=== PATIENT | male | born 1975 | race Caucasian/White ===

== ENCOUNTER 2016-10-18 17:48 | Emergency (ER) | payer SELFPAY ==
[2016-10-18 17:56] VITALS: BP 143/90; BMI 32.5
--- NOTE | 2016-10-18 18:31 | DR.GENAD ---
HPI - PCP Primary Care Physician: NFD - HPI Comment HPI Comment: GETTING WORSE. FEVER 103F LAST NIGHT. - Complaint/Symptoms Chief Complaint Doctors Comments: COUGH, BODY ACHES AND CHEST PAIN TIMES 3 DAYS. Chief Complaint:: BREATHING PROBLEMS, COUGHING AND BODY ACHING Self Treatment fo Chief Complaint: MOTIRN - Nurses notes reviewed Nurses Notes Review: Yes - Source History Provided: Patient - Mode of Arrival Mode of Arrival: Ambulatory - Timing Onset of Chief Complaint: 10/16/16 Came on: Suddenly - Duration Duration: Constant Duration: Days - Severity Severity: Moderate PMH - PMH Past Medical History: Yes Past Medical History: Seizures Past Medical History Comment: BRAIN SURGERY, STROKE ON LEFT SIDE WHILE IN CARE HOME Past Surgical History: Yes Surgical History: Thyroidectomy Past Surgical History Comment: BRAIN SURGERY WITH METAL PLATES - Family History History of Family Medical Conditions: Yes Family Medical History: Diabetes Mellitus, Cancer - Social History Does any household member use tobacco: No Alcohol Use: None Do you use any recreational Drugs:: No (thc) Lives With: Alone Lives Where: Home - infectious screening In the last 2 months have you had wt loss of >10#?: NO Have you had fever, night sweats or hemotysis?: No Have you traveled outside the country in the last 6 months?: No Isolation: Standard ROS - Review of Systems Constitutional: Fever, Weakness, Fatigue. negative: Chills Eyes: No Symptoms Reported. negative: Eye Pain, Discharge ENTM: No Symptoms Reported. negative: Ear Pain, Nose Discharge, Nose Congestion , Throat Pain Respiratoy: Productive Cough, Short of Breath, Wheezing. negative: Hemoptysis Cardiovascular: Chest Pain. negative: Edema, Palpitations, Syncope Gastrointestinal/Abdominal: Abdominal Pain. negative: Diarrhea, Nausea, Vomiting Genitourinary: No Symptoms Reported. negative: Dysuria, Frequency, Hematuria Musculoskeletal: Muscle Pain Integumentary: No Symptoms Reported Hematologic/Lymphatic: No Symptoms Reported Endocrine: No Symptoms Reported All Other Systems: Reviewed and Negative PE - Vital Signs Vitals: Temperature 97.6 F Pulse Rate 97 Respiratory Rate 20 Blood Pressure [Left Arm] 134/72 Blood Pressure 143/90 O2 Sat by Pulse Oximetry 97 - General Limitations: No Limitations General Appearance: Alert - Head Head Exam: Normal Inspection - Eyes Eye exam: Normal Appearance - ENT ENT Exam: Normal External Ear Exam External Ear Exam: Normal External Inspection TM/Canal Exam: Bilateral Normal Nose Exam: Normal Nose Exam Mouth Exam: Normal Inspection Throat Exam: Normal Inspection - Neck Neck Exam: Normal Inspection - Chest Chest Inspection: Symmetric Chest Wall Rise - Respiratory Respiratory Exam: Respiratory Distress. negative: Chest Wall Tenderness Respiratory Exam: Bilateral Wheezing, Bilateral Rhonchi, Lower Wheezing, Lower Rhonchi - Cardiovascular Cardiovascular Exam: Regular Rate, Normal Rhythm, Normal Heart Sounds - Abdominal Exam Abdominal Exam: Normal Bowel Sounds, Soft. negative: Tenderness - Extremities Extremities Exam: Normal Inspection - Back Back Exam: Normal Inspection - Neurologic Neurological Exam: Alert, Oriented X3 - Psychiatric Psychiatric Exam: Normal Affect, Normal Mood - Skin Skin Exam: Normal Color MDM - Differential Diagnosis Differential Diagnosis: PNEUMONIA, BRONCHITIS Course - Treatment Treatment: SEE ORDERS. - Education/Counseling Education/Counseling: Patient, Education Educated On: Diagnosis, Needs for Follow Up ROR - Labs Reviewed Laboratory Results Reviewed?: Yes Result Diagrams: 10/18/16 18:57 10/18/16 18:57 Laboratory: WBC 13.8 X10^3/uL (3.6-10.0) H 10/18/16 18:57 RBC 4.17 X10^6/uL (4.7-6.0) L 10/18/16 18:57 Hgb 13.0 g/dL (13.5-18.0) L 10/18/16 18:57 Hct 37.2 % (42.0-54.0) L 10/18/16 18:57 MCV 89.3 fL (80.0-100.0) 10/18/16 18:57 MCH 31.2 pg (27.0-34.0) 10/18/16 18:57 MCHC 34.9 g/dL (33.0-35.0) 10/18/16 18:57 RDW 12.6 % (11.6-16.5) 10/18/16 18:57 Plt Count 279 X10^3/uL (150.0-450.0) 10/18/16 18:57 MPV 8.4 fL (7.4-11.0) 10/18/16 18:57 Neut % 65.5 % (42.0-75.0) 10/18/16 18:57 Lymph % 19.0 % (21.0-51.0) L 10/18/16 18:57 [place] % 10.0 % (0.0-13.0) 10/18/16 18:57 Eos % 4.8 % (0.9-2.9) H 10/18/16 18:57 Baso % 0.7 % (0.2-1.0) 10/18/16 18:57 Neut # 9.0 x10^3/uL (2.2-4.8) H 10/18/16 18:57 Lymph # 2.6 X10^3/uL (1.3-2.9) 10/18/16 18:57 [place] # 1.4 x10^3/uL (0.3-0.8) H 10/18/16 18:57 Eos # 0.7 x10^3/uL (0.0-0.2) H 10/18/16 18:57 Baso # 0.1 X10^3/uL (0.0-0.1) 10/18/16 18:57 Absolute Nucleated RBC 0.0 /100WBC 10/18/16 18:57 Sodium 138 mmol/L (136-145) 10/18/16 18:57 Corrected Sodium TNP 10/18/16 18:57 Potassium 3.6 mmol/L (3.5-5.1) 10/18/16 18:57 Chloride 102 mmol/L (98-107) 10/18/16 18:57 Carbon Dioxide 26.5 mmol/L (21-32) 10/18/16 18:57 BUN 10 mg/dL (7-18) 10/18/16 18:57 Creatinine 0.99 mg/dL (0.70-1.30) 10/18/16 18:57 Est GFR (MDRD) Af Amer > 60 (>60) 10/18/16 18:57 Est GFR (MDRD) Non-Af > 60 (>60) 10/18/16 18:57 Glucose 92 mg/dL (65-99) 10/18/16 18:57 Calcium 9.1 mg/dL (8.5-10.1) 10/18/16 18:57 Corrected Calcium 9.7 mg/dL (8.5-10.1) 10/18/16 18:57 Total Bilirubin 0.50 mg/dL (0.2-1.0) 10/18/16 18:57 AST 38 Units/L (15-37) H 10/18/16 18:57 ALT 78 Units/L (12-78) 10/18/16 18:57 Alkaline Phosphatase 93 Units/L (46-116) 10/18/16 18:57 Total Protein 8.1 g/dL (6.4-8.2) 10/18/16 18:57 Albumin 3.3 g/dL (3.4-5.0) L 10/18/16 18:57 Globulin 4.8 g/dL (2.5-4.5) H 10/18/16 18:57 Albumin/Globulin Ratio 0.7 Ratio (1.1-2.1) L 10/18/16 18:57 - XRAY XRAY Interpreted by: Radiologist XRAY Findings: REPORT DISCUSS WITH PATIENT. - Diagnosis Discharge Problem: Bronchitis - Discharge Plan Disposition: 01 HOME, SELF-CARE Condition: Stable Prescriptions: Azithromycin [Zithromax Z-Michael 5-day] 1 dose PO DAILY #6 tab Benzonatate [TESSALON PERLES *] 200 mg PO TID PRN #20 cap PRN Reason: Cough Ibuprofen [Motrin Tab 800 mg] 800 mg PO Q8H PRN #20 tab PRN Reason: Pain/Inflammation - Follow ups/Referrals Follow ups/Referrals: NFD,None [Primary Care Provider] - 3 days - Instructions Instructions: Acute Bronchitis, [id number] Additional Instructions: RETURN TO ED IF WORSE.
[2016-10-18] MEDS ORDERED: TUSSIONEX PENNKINETIC SUSP PO ONE (18:47)
[2016-10-18 19:03] LABS: BASOPHILS # (AUTO) 0.1 X10^3/uL (0.0-0.1); BASOPHILS % (AUTO) 0.7 % (0.2-1.0); EOSINOPHILS # (AUTO) 0.7 x10^3/uL (0.0-0.2); EOSINOPHILS % (AUTO) 4.8 % (0.9-2.9); HEMATOCRIT 37.2 % (42.0-54.0); LYMPHOCYTES # (AUTO) 2.6 X10^3/uL (1.3-2.9); MEAN CORPUSCULAR HEMOGLOBIN 31.2 pg (27.0-34.0); MEAN CORPUSCULAR HGB CONC 34.9 g/dL (33.0-35.0); MEAN CORPUSCULAR VOLUME 89.3 fL (80.0-100.0); MEAN PLATELET VOLUME 8.4 fL (7.4-11.0); MONOCYTES # (AUTO) 1.4 x10^3/uL (0.3-0.8); NEUTROPHILS % (AUTO) 65.5 % (42.0-75.0); PLATELET COUNT 279 X10^3/uL (150.0-450.0); RED BLOOD COUNT 4.17 X10^6/uL (4.7-6.0); RED CELL DISTRIBUTION WIDTH 12.6 % (11.6-16.5); WHITE BLOOD COUNT 13.8 X10^3/uL (3.6-10.0)
[2016-10-18 19:24] LABS: ALANINE AMINOTRANSFERASE 78 Units/L (12-78); ALBUMIN 3.3 g/dL (3.4-5.0); ALKALINE PHOSPHATASE 93 Units/L (46-116); ASPARTATE AMINO TRANSFERASE 38 Units/L (15-37); BLOOD UREA NITROGEN 10 mg/dL (7-18); CALCIUM 9.1 mg/dL (8.5-10.1); CARBON DIOXIDE 26.5 mmol/L (21-32); CHLORIDE 102 mmol/L (98-107); COR CA(FOR HYPOALB) 9.7 mg/dL (8.5-10.1); CREATININE 0.99 mg/dL (0.70-1.30); GLUCOSE 92 mg/dL (65-99); SODIUM 138 mmol/L (136-145); TOTAL PROTEIN 8.1 g/dL (6.4-8.2); eGFR BLACK RACES > 60 (>60); eGFR NON BLACK RACES > 60 (>60)
--- NOTE | 2016-10-18 19:44 | RAD ---
HISTORY: Cough, fever Study: Two view chest Comparison: None Findings: Lung volumes are reduced. The lungs are clear without consolidation, effusion or pneumothorax. The c ardiac and mediastinal contours are within normal limits. The soft tissues are unremarkable. IMPRESSION: 1. No acute cardiopulmonary abnormality. Reported By:
[2016-10-18] MEDS ORDERED: ZITHROMAX TAB 250 MG PO ONE ×2 (19:47→19:49)
[2016-10-18] MEDS ORDERED: TUSSIONEX PENNKINETIC SUSP ONE (19:50)
== END 2016-10-18 19:54 | disposition home or self-care (01) ==
LOC: ER 18:04
DX: J40 Bronchitis, not specified as acute or chronic (principal)
CPT/HCPCS: 36415; 71020; 80053; 85025; 99283; Q0144

== ENCOUNTER 2017-02-09 13:20 | Emergency (ER) | payer SELFPAY ==
[2017-02-09 13:55] VITALS: BP 151/94; BMI 32.5
[2017-02-09] MEDS ORDERED: DEMEROL INJ IM ONE (16:44)
[2017-02-09] MEDS ORDERED: ZOFRAN INJ 4 MG VIAL IM ONE (16:44)
[2017-02-09] MEDS ORDERED: DEMEROL INJ ONE (17:04)
[2017-02-09] MEDS ORDERED: ZOFRAN INJ 4 MG VIAL ONE (17:04)
--- NOTE | 2017-02-09 17:15 | CT ---
CT head without contrast Indication: Headache, prior frontal calvarial surgery related to trauma in 2007 Technique: Helical CT images of the brain were obtained without IV contrast. Reformatted images in th e coronal and sagittal planes were also generated for review. Comparison: None Findings: Prior postsurgical changes within the frontal calvarium are noted with associated fixation plate and screw construct. There is a persistent defect involving the inner table of the frontal sinu ses with mild bulging of the bilateral anterior frontal lobes into the defect. There is associated hy poattenuation of the left greater than right frontal lobes at the calvarial defect, either reflecting edema or encephalomalacia. The remaining brain is otherwise normal in appearance. No intracranial he morrhage, visible acute infarct, extra-axial collection, hydrocephalus, mass or midline shift is iden tified. Chronic appearing fractures of the bilateral nasal bones are noted. There is mild mucosal thickening of the bilateral ethmoid air cells and right greater than left maxillary sinuses. There are inspissat ed secretions within the posterior right maxillary sinus. Partial opacification bilateral mastoid air cells is also noted. No acute osseous or soft tissue abnormality is seen. Impression: 1. Prior postsurgical changes of the frontal calvarium with persistent defect involving the inner tab le of the frontal sinuses. There is bulging of the bilateral frontal lobes through the defect with as sociated edema versus encephalomalacia of the left greater than right frontal lobes, as detailed abov e. If available, comparison with prior imaging is recommended to evaluate for stability. 2. Otherwise, no acute intracranial process. 3. Paranasal sinus mucosal disease and additional findings, as above. Reported By:
[2017-02-09 17:20] LABS: ALBUMIN 3.4 g/dL (3.4-5.0); ALKALINE PHOSPHATASE 106 Units/L (46-116); BLOOD UREA NITROGEN 9 mg/dL (7-18); CALCIUM 8.7 mg/dL (8.5-10.1); CARBON DIOXIDE 26.2 mmol/L (21-32); CHLORIDE 105 mmol/L (98-107); COR NA(FOR HYPERGLY) 140 mmol/L (136-145); CREATININE 0.94 mg/dL (0.70-1.30); SODIUM 139 mmol/L (136-145); eGFR BLACK RACES > 60 (>60); eGFR NON BLACK RACES > 60 (>60)
[2017-02-09 17:46] LABS: BASOPHILS # (AUTO) 0.1 X10^3/uL (0.0-0.1); BASOPHILS % (AUTO) 0.7 % (0.2-1.0); EOSINOPHILS # (AUTO) 0.3 x10^3/uL (0.0-0.2); EOSINOPHILS % (AUTO) 4.1 % (0.9-2.9); HEMATOCRIT 41.5 % (42.0-54.0); HEMOGLOBIN 14.9 g/dL (13.5-18.0); LYMPHOCYTES # (AUTO) 2.4 X10^3/uL (1.3-2.9); LYMPHOCYTES % (AUTO) 32.1 % (21.0-51.0); MEAN CORPUSCULAR HEMOGLOBIN 33.1 pg (27.0-34.0); MEAN CORPUSCULAR HGB CONC 35.8 g/dL (33.0-35.0); MEAN CORPUSCULAR VOLUME 92.2 fL (80.0-100.0); MEAN PLATELET VOLUME 10.2 fL (7.4-11.0); MONOCYTES # (AUTO) 0.5 x10^3/uL (0.3-0.8); MONOCYTES % (AUTO) 6.6 % (0.0-13.0); NEUTROPHILS # (AUTO) 4.2 x10^3/uL (2.2-4.8); NEUTROPHILS % (AUTO) 56.5 % (42.0-75.0); PLATELET COUNT 183 X10^3/uL (150.0-450.0); RED CELL DISTRIBUTION WIDTH 13.1 % (11.6-16.5); WHITE BLOOD COUNT 7.5 X10^3/uL (3.6-10.0)
[2017-02-09 18:04] LABS: BAND NEUTROPHILS % 6 % (0-10)
[2017-02-09 18:05] LABS: PLATELET MORPHOLOGY COMMENT NORMAL (NORMAL)
[2017-02-09 18:06] LABS: ASPARTATE AMINO TRANSFERASE 78 Units/L (15-37)
[2017-02-09 18:07] LABS: ALANINE AMINOTRANSFERASE 126 Units/L (12-78)
--- NOTE | 2017-02-09 18:13 | DR.GENAD ---
HPI - PCP Primary Care Physician: NFD - HPI Comment HPI Comment: HISTORY BELOW. - Complaint/Symptoms Chief Complaint Doctors Comments: HEADACHE, EAR ACHE AND DRAINAGE AND SINUS CONGESTION AND DRAINAGE FOR SEVERAL DAYS. NO FEVER. HEADACHE GETTING WORSE. POST SURGERY BRAIN WITH INDWELLING PLATES DUE TO TRAUMA. NO NEW INJURY. DRAINAGE ALSO GETTING WORSE. Chief Complaint:: "About 4 days ago I have been having a bad headache and have been having vision problems. I have also been very dizzy. I have been having stuff coming out of my nose and my eye as well, some kind of drainage. I had surgury on my brain in 2007. I have a plate in my head and the doctor told me that I need to go to the ER to see if the plate has shifted. - Nurses notes reviewed Nurses Notes Review: Yes - Source History Provided: Patient - Mode of Arrival Mode of Arrival: Ambulatory - Timing Onset of Chief Complaint: 02/06/17 - Duration Duration: Constant Duration: Days PMH - PMH Past Medical History: Yes Past Medical History: Dyslipidemia, Seizures Past Medical History Comment: Previous stroke Past Surgical History: Yes Surgical History: Tonsillectomy, Other Past Surgical History Comment: Plate put in head. - Family History History of Family Medical Conditions: Yes Family Medical History: Diabetes Mellitus, Cancer - Social History Does patient currently use any type of tobacco product: Yes Have you used tobacco products in the last 12 months: Yes Type of Tobacco Use: Cigarettes Does any household member use tobacco: No Alcohol Use: None Do you use any recreational Drugs:: No Lives With: Family Lives Where: Home - infectious screening In the last 2 months have you had wt loss of >10#?: NO Have you had fever, night sweats or hemotysis?: No Have you traveled outside the country in the last 6 months?: No Isolation: Standard ROS - Review of Systems Constitutional: negative: Chills, Fever Eyes: Discharge. negative: Eye Pain ENTM: No Symptoms Reported, Ear Pain, Ear Discharge (BILATERAL), Nose Discharge , Nose Congestion. negative: Throat Pain Respiratoy: Non-Productive Cough. negative: Short of Breath, Wheezing, Hemoptysis Cardiovascular: No Symptoms Reported. negative: Chest Pain, Edema Gastrointestinal/Abdominal: No Symptoms Reported. negative: Diarrhea, Nausea, Vomiting Genitourinary: No Symptoms Reported. negative: Dysuria, Frequency, Hematuria Neurological: Headache, Weakness, Dizziness Musculoskeletal: Muscle Pain Integumentary: Change in Color, Other (EAR LOBE SWELLING AND REDNESS) Hematologic/Lymphatic: No Symptoms Reported Endocrine: No Symptoms Reported All Other Systems: Reviewed and Negative PE - Vital Signs Vitals: Temperature 97.8 F Pulse Rate 95 Respiratory Rate 18 Blood Pressure [Left Arm] 134/72 Blood Pressure 151/94 O2 Sat by Pulse Oximetry 96 - General Limitations: No Limitations General Appearance: Alert - Head Head Exam: Normal Inspection - Eyes Eye exam: Normal Appearance, PERRL, EOMI. negative: Scleral Icterus, Conjunctival Injection - ENT ENT Exam: Normal Oropharynx, Normal External Ear Exam External Ear Exam: Normal External Inspection TM/Canal Exam: Bilateral Erythema, Bilateral Canal Tenderness Nose Exam: Normal Nose Exam Mouth Exam: Normal Inspection Throat Exam: Normal Inspection - Neck Neck Exam: Trachea Midline, Lymphadenopathy. negative: Tenderness, Meningismus - Chest Chest Inspection: Symmetric Chest Wall Rise - Respiratory Respiratory Exam: Normal Lung Sounds Bilat Respiratory Exam: Bilateral Clear to Auscultation - Cardiovascular Cardiovascular Exam: Regular Rate, Normal Rhythm, Normal Heart Sounds - Abdominal Exam Abdominal Exam: Normal Bowel Sounds, Soft. negative: Tenderness - Extremities Extremities Exam: Normal Inspection - Back Back Exam: Normal Inspection - Neurologic Neurological Exam: Alert, Oriented X3, CN II-XII Intact, Normal Gait, Reflexes Normal. negative: Motor Sensory Deficit - Psychiatric Psychiatric Exam: Normal Affect, Normal Mood - Skin Skin Exam: Normal Color MDM - Additional Information Additional Information Obtained From: Family - Differential Diagnosis Differential Diagnosis: otitis media, otitis external, sinusitis, sinus headache , ear drainage Course - Treatment Treatment: SEE ORDERS. IM MEDS IN ED. - Education/Counseling Education/Counseling: Patient, Family, Education Educated On: Treatment, Diagnosis, Needs for Follow Up ROR - Labs Reviewed Laboratory Results Reviewed?: Yes Result Diagrams: 02/09/17 16:59 02/09/17 16:59 Laboratory: WBC 7.5 X10^3/uL (3.6-10.0) 02/09/17 16:59 RBC 4.50 X10^6/uL (4.7-6.0) L 02/09/17 16:59 Hgb 14.9 g/dL (13.5-18.0) 02/09/17 16:59 Hct 41.5 % (42.0-54.0) L 02/09/17 16:59 MCV 92.2 fL (80.0-100.0) 02/09/17 16:59 MCH 33.1 pg (27.0-34.0) 02/09/17 16:59 MCHC 35.8 g/dL (33.0-35.0) H 02/09/17 16:59 RDW 13.1 % (11.6-16.5) 02/09/17 16:59 Plt Count 183 X10^3/uL (150.0-450.0) 02/09/17 16:59 Plt Count Comment Adequate (ADEQUATE) 02/09/17 16:59 MPV 10.2 fL (7.4-11.0) 02/09/17 16:59 Neut % 56.5 % (42.0-75.0) 02/09/17 16:59 Lymph % 32.1 % (21.0-51.0) 02/09/17 16:59 [place] % 6.6 % (0.0-13.0) 02/09/17 16:59 Eos % 4.1 % (0.9-2.9) H 02/09/17 16:59 Baso % 0.7 % (0.2-1.0) 02/09/17 16:59 Neut # 4.2 x10^3/uL (2.2-4.8) 02/09/17 16:59 Lymph # 2.4 X10^3/uL (1.3-2.9) 02/09/17 16:59 [place] # 0.5 x10^3/uL (0.3-0.8) 02/09/17 16:59 Eos # 0.3 x10^3/uL (0.0-0.2) H 02/09/17 16:59 Baso # 0.1 X10^3/uL (0.0-0.1) 02/09/17 16:59 Absolute Nucleated RBC 0.6 /100WBC 02/09/17 16:59 Total Counted 100 02/09/17 16:59 Neutrophils % (Manual) 54 % (39-76) 02/09/17 16:59 Band Neutrophils % 6 % (0-10) 02/09/17 16:59 Lymphocytes % (Manual) 30 % (13-43) 02/09/17 16:59 Monocytes % (Manual) 4 % (4-9) 02/09/17 16:59 Eosinophils % (Manual) 6 % (0-6) 02/09/17 16:59 Plt Morphology Comment Normal (NORMAL) 02/09/17 16:59 RBC Morphology Normal (NORMAL) 02/09/17 16:59 Sodium 139 mmol/L (136-145) 02/09/17 16:59 Corrected Sodium 140 mmol/L (136-145) 02/09/17 16:59 Potassium 3.6 mmol/L (3.5-5.1) 02/09/17 16:59 Chloride 105 mmol/L (98-107) 02/09/17 16:59 Carbon Dioxide 26.2 mmol/L (21-32) 02/09/17 16:59 BUN 9 mg/dL (7-18) 02/09/17 16:59 Creatinine 0.94 mg/dL (0.70-1.30) 02/09/17 16:59 Est GFR (MDRD) Af Amer > 60 (>60) 02/09/17 16:59 Est GFR (MDRD) Non-Af > 60 (>60) 02/09/17 16:59 Glucose 138 mg/dL (65-99) H 02/09/17 16:59 Calcium 8.7 mg/dL (8.5-10.1) 02/09/17 16:59 Corrected Calcium TNP 02/09/17 16:59 Total Bilirubin 0.60 mg/dL (0.2-1.0) 02/09/17 16:59 AST 78 Units/L (15-37) H 02/09/17 16:59 ALT 126 Units/L (12-78) H 02/09/17 16:59 Alkaline Phosphatase 106 Units/L (46-116) 02/09/17 16:59 Total Protein 7.0 g/dL (6.4-8.2) 02/09/17 16:59 Albumin 3.4 g/dL (3.4-5.0) 02/09/17 16:59 Globulin 3.6 g/dL (2.5-4.5) 02/09/17 16:59 Albumin/Globulin Ratio 0.9 Ratio (1.1-2.1) L 02/09/17 16:59 - XRAY XRAY Interpreted by: Radiologist XRAY Findings: REPORT DISCUSS WITH PATIENT AND FAMILY. - Diagnosis Discharge Problem: Sinus headache Otitis media Qualifiers: Otitis media type: suppurative Chronicity: acute Laterality: bilateral Recurrence: recurrent Spontaneous tympanic membrane rupture: without spontaneous rupture Qualified Code(s): H66.006 - Acute suppurative otitis media without spontaneous rupture of ear drum, recurrent, bilateral Otitis external Qualifiers: Otitis externa type: diffuse Chronicity: acute Laterality: bilateral Qualified Code(s): H60.313 - Diffuse otitis externa, bilateral Sinusitis Qualifiers: Sinusitis location: pansinusitis Chronicity: chronic Qualified Code(s): J32.4 - Chronic pansinusitis Ear drainage Qualifiers: Laterality: bilateral Qualified Code(s): H92.13 - Otorrhea, bilateral - Discharge Plan Disposition: HOME, SELF-CARE Condition: Stable Prescriptions: Nhvbckisza-Iwsn-Nhlublex [Fioricet Tab] 1 tab PO Q8H PRN #30 tab PRN Reason: Migraine Headache Cetirizine HCl [Zyrtec Tab 10 mg] 10 mg PO DAILY #30 tab Ciprofloxacin HCl [CIPRO 500 MG TAB *] 500 mg PO Q12H #20 tab Ibuprofen [MOTRIN TAB 800 MG *] 800 mg PO Q8H PRN #90 tab PRN Reason: Pain/Inflammation Sulfamethoxazole-Trimethoprim [BACTRIM DS TAB 800/160 MG *] 1 tab PO Q8H #30 tab Tramadol HCl 50 mg PO Q8H #15 tablet - Follow ups/Referrals Follow ups/Referrals: NFD,None [Primary Care Provider] - 3 days - Instructions Instructions: Ear Drainage, [id number], Otitis Media, Adult, [id number]-[id number], Sinusitis, Adult, [id number], Sinus Headache Additional Instructions: RETURN TO ED IF WORSE.
[2017-02-09] MEDS ORDERED: ROCEPHIN VIAL 1 GM IM ONE (18:39)
[2017-02-09] MEDS ORDERED: TORADOL 60 MG VIAL IM ONE (18:39)
[2017-02-09] MEDS ORDERED: ROCEPHIN VIAL 1 GM ONE (18:51)
[2017-02-09] MEDS ORDERED: TORADOL 60 MG VIAL ONE ×2 (18:52)
[2017-02-09] MEDS ORDERED: XYLOCAINE 1 % (PLAIN) ONE (18:52)
== END 2017-02-09 19:00 | disposition home or self-care (01) ==
LOC: ER 14:01
DX: R51 Headache (principal); H66.006 Acute suppurative otitis media without spontaneous rupture of ear drum, recurrent, bilateral; H60.313 Diffuse otitis externa, bilateral; J32.4 Chronic pansinusitis; H92.13 Otorrhea, bilateral
CPT/HCPCS: 36415; 70450; 80053; 85025; 96372; 99283; J0696; J1885; J2001; J2175; J2405

== ENCOUNTER 2017-07-25 16:10 | Emergency (ER) | payer SELFPAY ==
[2017-07-25 16:21] VITALS: BP 127/79; BMI 35.4
--- NOTE | 2017-07-25 17:02 | DR.CONMALE ---
HPI - Time Seen Time seen: 16:50 - Complaint Chief Complaint Doctors Comments: Patient presents with complaint of constipation three weeks. He reports that he has Hepatitis C is taking Lactulose 45cc tid. He was diagnosed with liver disease in 2013. - Timing Onset of Chief Complaint: 05/22/17 PMH - PMH Past Medical History: Yes Past Medical History: Anxiety, Dyslipidemia, Schizophrenia, Seizures Past Surgical History: Yes Surgical History: Tonsillectomy, Other - Family History History of Family Medical Conditions: Yes Family Medical History: Cancer, Hypertension - Social History Does patient currently use any type of tobacco product: Yes Have you used tobacco products in the last 12 months: Yes Type of Tobacco Use: Cigarettes Does any household member use tobacco: Yes Alcohol Use: None Do you use any recreational Drugs:: No Lives With: Spouse, Family Lives Where: Home - infectious screening In the last 2 months have you had wt loss of >10#?: YES Have you had fever, night sweats or hemotysis?: No Have you traveled outside the country in the last 6 months?: No Isolation: Standard ROS - Review of Systems Eyes: No Symptoms Reported ENTM: No Symptoms Reported Respiratoy: No Symptoms Reported Cardiovascular: No Symptoms Reported Gastrointestinal/Abdominal: No Symptoms Reported Genitourinary: No Symptoms Reported Neurological: No Symptoms Reported Musculoskeletal: No Symptoms Reported Integumentary: No Symptoms Reported Hematologic/Lymphatic: Other (liver) Endocrine: No Symptoms Reported Psychiatric: No Symptoms Reported All Other Systems: Reviewed and Negative PE - Vital Signs Vital Signs: Temp Pulse Resp BP BP Pulse Ox 07/25/17 16:11 98.7 F 84 22 127/79 98 02/09/17 13:49 151/94 10/14/12 06:00 134/72 - General Limitations: No Limitations General Appearance: Alert, In No Apparent Distress - Head Head Exam: Normal Inspection, Atraumatic - Eyes Eye exam: Normal Appearance, PERRL, EOMI - ENT ENT Exam: Normal Exam - Neck Neck Exam: Normal Inspection, Full ROM - Chest Chest Inspection: Normal Inspection - Respiratory Respiratory Exam: Normal Lung Sounds Bilat Respiratory Exam: Bilateral Clear to Auscultation - Cardiovascular Cardiovascular Exam: Regular Rate - Gastrointestinal Abdominal Exam: Normal Inspection Abdominal Tenderness: Diffuse, Other (distended) - Rectal Rectal: Normal Exam, Normal Rectal Tone. negative: Black Stool, Hemorrhoids, Tenderness - Extremities Extremities Exam: Normal Inspection - Back Back Exam: Normal Inspection - Neurological Neurological Exam: Alert, Oriented X3, CN II-XII Intact - Psychiatric Psychiatric Exam: Normal Affect - Skin Skin Exam: Warm, Dry, Intact Course - Education/Counseling Educated On: Treatment, Diagnosis, Prognosis, Needs for Follow Up ROR - Labs Reviewed Result Diagrams: 07/25/17 17:10 07/25/17 17:10 Laboratory: WBC 9.1 X10^3/uL (3.6-10.0) 07/25/17 17:10 RBC 4.74 X10^6/uL (4.7-6.0) 07/25/17 17:10 Hgb 15.1 g/dL (13.5-18.0) 07/25/17 17:10 Hct 43.0 % (42.0-54.0) 07/25/17 17:10 MCV 90.7 fL (80.0-100.0) 07/25/17 17:10 MCH 31.9 pg (27.0-34.0) 07/25/17 17:10 MCHC 35.2 g/dL (33.0-35.0) H 07/25/17 17:10 RDW 12.6 % (11.6-16.5) 07/25/17 17:10 Plt Count 226 X10^3/uL (150.0-450.0) 07/25/17 17:10 MPV 9.5 fL (7.4-11.0) 07/25/17 17:10 Neut % 54.2 % (42.0-75.0) 07/25/17 17:10 Lymph % 35.4 % (21.0-51.0) 07/25/17 17:10 [place] % 5.9 % (0.0-13.0) 07/25/17 17:10 Eos % 3.6 % (0.9-2.9) H 07/25/17 17:10 Baso % 0.9 % (0.2-1.0) 07/25/17 17:10 Neut # 4.9 x10^3/uL (2.2-4.8) H 07/25/17 17:10 Lymph # 3.2 X10^3/uL (1.3-2.9) H 07/25/17 17:10 [place] # 0.5 x10^3/uL (0.3-0.8) 07/25/17 17:10 Eos # 0.3 x10^3/uL (0.0-0.2) H 07/25/17 17:10 Baso # 0.1 X10^3/uL (0.0-0.1) 07/25/17 17:10 Absolute Nucleated RBC 0.0 /100WBC 07/25/17 17:10 Sodium 138 mmol/L (136-145) 07/25/17 17:10 Corrected Sodium TNP 07/25/17 17:10 Potassium 4.3 mmol/L (3.5-5.1) 07/25/17 17:10 Chloride 101 mmol/L (98-107) 07/25/17 17:10 Carbon Dioxide 28.6 mmol/L (21-32) 07/25/17 17:10 BUN 18 mg/dL (7-18) 07/25/17 17:10 Creatinine 1.18 mg/dL (0.70-1.30) 07/25/17 17:10 Est GFR (MDRD) Af Amer > 60 (>60) 07/25/17 17:10 Est GFR (MDRD) Non-Af > 60 (>60) 07/25/17 17:10 Glucose 91 mg/dL (65-99) 07/25/17 17:10 Calcium 9.1 mg/dL (8.5-10.1) 07/25/17 17:10 Corrected Calcium TNP 07/25/17 17:10 Total Bilirubin 0.40 mg/dL (0.2-1.0) 07/25/17 17:10 AST 48 Units/L (15-37) H 07/25/17 17:10 ALT 88 Units/L (12-78) H 07/25/17 17:10 Alkaline Phosphatase 99 Units/L (46-116) 07/25/17 17:10 Ammonia 19 umol/L (11-32) 07/25/17 17:10 Total Protein 7.8 g/dL (6.4-8.2) 07/25/17 17:10 Albumin 3.7 g/dL (3.4-5.0) 07/25/17 17:10 Globulin 4.1 g/dL (2.5-4.5) 07/25/17 17:10 Albumin/Globulin Ratio 0.9 Ratio (1.1-2.1) L 07/25/17 17:10 Stool Description Fob tube 07/25/17 17:02 Stl Occult Blood (IFOB) Negative (NEGATIVE) 07/25/17 17:02 - XRAY XRAY Interpreted by: Radiologist (KUB: Evaluatioon of the abdomen demonstrates a nonspecific/nonobstructive bowel gas pattern with air and stool to the level of the rectum. No obvious free air. No pathological soft tissue mass or calcification can be observed. The bony structures are grossly intact. Impression: Nonobstructive bowel-gas pattern.) Procedures - Procedures Informed Consent Obtained: Yes (Ammonia level 19) - Diagnosis Discharge Problem: Constipation Qualifiers: Constipation type: slow transit constipation Qualified Code(s): K59.01 - Slow transit constipation - Discharge Plan Condition: Stable - Follow ups/Referrals Follow ups/Referrals: ROSELINE BAILEY [Primary Care Provider] - 3 days - Instructions
[2017-07-25 17:21] LABS: BASOPHILS # (AUTO) 0.1 X10^3/uL (0.0-0.1); BASOPHILS % (AUTO) 0.9 % (0.2-1.0); EOSINOPHILS # (AUTO) 0.3 x10^3/uL (0.0-0.2); EOSINOPHILS % (AUTO) 3.6 % (0.9-2.9); HEMOGLOBIN 15.1 g/dL (13.5-18.0); LYMPHOCYTES # (AUTO) 3.2 X10^3/uL (1.3-2.9); LYMPHOCYTES % (AUTO) 35.4 % (21.0-51.0); MEAN CORPUSCULAR HEMOGLOBIN 31.9 pg (27.0-34.0); MEAN CORPUSCULAR HGB CONC 35.2 g/dL (33.0-35.0); MEAN CORPUSCULAR VOLUME 90.7 fL (80.0-100.0); MEAN PLATELET VOLUME 9.5 fL (7.4-11.0); MONOCYTES # (AUTO) 0.5 x10^3/uL (0.3-0.8); MONOCYTES % (AUTO) 5.9 % (0.0-13.0); NEUTROPHILS # (AUTO) 4.9 x10^3/uL (2.2-4.8); NEUTROPHILS % (AUTO) 54.2 % (42.0-75.0); PLATELET COUNT 226 X10^3/uL (150.0-450.0); RED BLOOD COUNT 4.74 X10^6/uL (4.7-6.0); RED CELL DISTRIBUTION WIDTH 12.6 % (11.6-16.5); WHITE BLOOD COUNT 9.1 X10^3/uL (3.6-10.0)
[2017-07-25 17:27] LABS: AMMONIA 19 umol/L (11-32)
[2017-07-25 17:30] LABS: ALANINE AMINOTRANSFERASE 88 Units/L (12-78); ALBUMIN 3.7 g/dL (3.4-5.0); ALKALINE PHOSPHATASE 99 Units/L (46-116); ASPARTATE AMINO TRANSFERASE 48 Units/L (15-37); BLOOD UREA NITROGEN 18 mg/dL (7-18); CALCIUM 9.1 mg/dL (8.5-10.1); CARBON DIOXIDE 28.6 mmol/L (21-32); CHLORIDE 101 mmol/L (98-107); CREATININE 1.18 mg/dL (0.70-1.30); SODIUM 138 mmol/L (136-145); TOTAL PROTEIN 7.8 g/dL (6.4-8.2); eGFR BLACK RACES > 60 (>60); eGFR NON BLACK RACES > 60 (>60)
--- NOTE | 2017-07-25 17:51 | RAD ---
HISTORY: Constipation and right-sided abdominal pain. Study: 2 AP views of the abdomen. Comparison: None. Findings: Evaluation of the abdomen demonstrates a nonspecific/nonobstructive bowel-gas pattern with air and st ool to the level of the rectum. No obvious free air. No pathological soft tissue mass or calcificati on can be observed. The bony structures are grossly intact. IMPRESSION: Nonobstructive bowel-gas pattern. Reported By:
[2017-07-25] MEDS ORDERED: CITROMA PO ONE (18:14)
[2017-07-25] MEDS ORDERED: CITROMA ONE (18:17)
== END 2017-07-25 18:18 | disposition home or self-care (01) ==
LOC: ER 16:35
DX: K59.01 Slow transit constipation (principal)
CPT/HCPCS: 36415; 74018; 80053; 82140; 82274; 85025; 99282

== ENCOUNTER 2017-08-18 11:30 | Emergency (ER) | payer SELFPAY ==
[2017-08-18] MEDS ORDERED: DILAUDID INJ IVP STA ×2 (11:41→12:37)
[2017-08-18] MEDS ORDERED: DILAUDID INJ ONE (11:42)
[2017-08-18 11:46] VITALS: BP 152/92; BMI 35.7
--- NOTE | 2017-08-18 11:56 | DR.GENAD ---
HPI - Complaint/Symptoms Chief Complaint Doctors Comments: Patient presented to the ED via EMS with complaint of hurting his back he heard a "pop" when trying to lift a refrigerator. He states that he also complaint of neck pain PMH - PMH Past Medical History: Anxiety, Dyslipidemia, Schizophrenia, Seizures Past Surgical History: Yes Surgical History: Tonsillectomy, Other - Family History Family Medical History: Cancer, Hypertension - Social History Do you use any recreational Drugs:: No ROS - Review of Systems Eyes: No Symptoms Reported ENTM: No Symptoms Reported Respiratoy: No Symptoms Reported Cardiovascular: No Symptoms Reported Gastrointestinal/Abdominal: No Symptoms Reported Genitourinary: No Symptoms Reported Neurological: No Symptoms Reported Musculoskeletal: Back Pain, Neck Integumentary: No Symptoms Reported Hematologic/Lymphatic: No Symptoms Reported Endocrine: No Symptoms Reported Psychiatric: No Symptoms Reported All Other Systems: Reviewed and Negative PE - Vital Signs Vitals: Temperature 98.1 F Pulse Rate 99 Respiratory Rate 18 Blood Pressure [Left Arm] 134/72 Blood Pressure 152/92 O2 Sat by Pulse Oximetry 98 - General Limitations: No Limitations General Appearance: Alert, In No Apparent Distress - Head Head Exam: Normal Inspection, Atraumatic - Eyes Eye exam: Normal Appearance, PERRL, EOMI - ENT ENT Exam: Normal Exam External Ear Exam: Normal External Inspection TM/Canal Exam: Bilateral Normal Nose Exam: Normal Nose Exam Mouth Exam: Normal Inspection Throat Exam: Normal Inspection - Neck Neck Exam: Normal Inspection, Full ROM, Other (c/o neck paiin) - Chest Chest Inspection: Normal Inspection - Respiratory Respiratory Exam: Normal Lung Sounds Bilat Respiratory Exam: Bilateral Clear to Auscultation - Cardiovascular Cardiovascular Exam: Regular Rate, Normal Rhythm - Abdominal Exam Abdominal Exam: Normal Inspection Abdominal Tenderness: negative: RUQ, RLQ, LUQ, LLQ, Epigastrium, Suprapubic, Diffuse, Mild, Moderate, Severe, Other - Extremities Extremities Exam: Normal Inspection, Full ROM - Back Back Exam: Normal Inspection, Muscle Spasm, Paraspinal Tenderness - Neurologic Neurological Exam: Alert, Oriented X3, CN II-XII Intact - Psychiatric Psychiatric Exam: Normal Affect - Skin Skin Exam: Warm, Dry, Intact ROR - XRAY XRAY Interpreted by: Radiologist (CT Cervical Spine: No evidence for fracture or dislocation. Degenerative disc disease C5-6 and C6-7. CT Lumbar spine: Mild multilevel degenerative disease without significant central canal or neural foraminal stenosis. No acute fracture or malalignment. 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
--- NOTE | 2017-08-18 12:25 | CT ---
HISTORY: Injury, fall, neck pain Study: CT cervical spine without contrast Comparison: None Technique: Axial noncontrast images with coronal and sagittal reformats. Dose reduction procedures we re used with mA/kv adjusted for body size. Findings: There is reversal of the normal lordotic curve which could be positional or due to muscle spasm. The alignment is otherwise normal. The prevertebral soft tissues are normal. The vertebral bodies are of average height. Degenerative disc disease is present at C5-6 and C6-7.. The pedicles, spinous process es, and posterior elements are intact. The neural foramina are patent with the exception of spondylit ic foraminal narrowing at C5-6 bilaterally. The facet joints are within normal limits. Diffuse bilate ral uncovertebral joint degenerative joint disease is present most prominent at C5-6. IMPRESSION: No evidence for fracture or dislocation Degenerative disc disease C5-6 and C6-7. Diffuse bilateral uncovertebral joint degenerative joint disease most prominent at C5-6 Reported By:
--- NOTE | 2017-08-18 12:28 | CT ---
CT LUMBAR SPINE WITHOUT CLINICAL HISTORY: 41-year-old male status post back injury several days ago secondary to fall. COMPARISON: None. TECHNIQUE: Multiple, noncontrasted axial CT images were obtained from the thoracolumbar junction to the sacrum and reconstructed in the sagittal and coronal planes. FINDINGS: Straightening of the lumbar lordosis as imaged. There is preservation of vertebral body and disc space height. Mild multilevel degenerative disease without significant central canal or neural foraminal stenosis. The posterior elements are normal in appearance and alignment. No acute fracture or malalignment. IMPRESSION: No acute fracture or malalignment of the lumbar spine. Reported By:
== END 2017-08-18 13:18 | disposition home or self-care (01) ==
LOC: ER 11:32
DX: M51.36 Other intervertebral disc degeneration, lumbar region (principal); M47.812 Spondylosis without myelopathy or radiculopathy, cervical region; M50.322 Other cervical disc degeneration at C5-C6 level
CPT/HCPCS: 72125; 72131; 96365; 96374; 96375; 99282; 99283; J1170

== ENCOUNTER 2022-03-13 08:44 | Observation (INO) ==
--- NOTE | 2022-03-13 09:17 | DR.ABDMALE ---
HPI Time seen Time Seen by Provider: 03/13/22 09:15 PCP Primary Care Physician: SYLVIE BAILEY HPI comment HPI Comment: PATIENT IS 46YR OLD MALE IN ER WITH 3 DAYS HISTORY OF VOMITING BLOOD AND HAVING DARK DIARRHEA STOOL WITH ABDOMINAL PAIN. NO FEVER OR DYSURIA. HAVE UMBILICAL HERNIA THAT IS HURTING. VOMITUS COFFEE GROUND IN COLOR. PATIENT SAID HE HAD KNOT IN RT TESTIS NOTED TODAY. Complaint Chief Complaint Doctors Comments: COUGHING BLOOD, DIARRHEA WITH DARK STOOL TIMES 3 DAYS Chief Complaint:: FOR ABOUT 3 DAYS, PT STATES HE IS THROWING UP BLOOD; HAVING DIARRHEA THAT IS BLACK, GREEN, RED; WEAK; DIZZY; ABDOMINAL PAIN THAT IS PERIUMBILICAL AND RADIATES AROUND TO HIS RIGHT ABDOMEN. PT STATES HE HAS AN UMBILICAL HERNIA AND POSSIBLY AN INGUINAL/SCROTAL HERNIA Self Treatment fo Chief Complaint: NO MEDS TODAY COVID-19 Coronavirus risk:travel/contact w/high risk person: No Has patient experienced Coronavirus symptoms: No Reviewed Nurses Notes Review: Yes Source History provided by:: PATIENT Mode of arrival Mode of Arrival: Ambulatory Timing Onset of Chief Complaint: 03/08/22 Duration Duration: Constant Duration: Days Location Location: Periumbilical Severity Severity: Moderate Quality Quality: Sharp Context Onset: Suddenly PMH PMH Past Medical History: Yes Past Medical History: CVA, Depression, Schizophrenia and Seizures Past Medical History Comment: TAKING PAIN MEDS FOR BACK AND NECK Past Surgical History: Yes Surgical History: Other Past Surgical History Comment: BRAIN SURGERY, NASAL RECONSTRUCTION Family History History of Family Medical Conditions: Yes Family Medical History: Hypertension Social History Does patient currently use any type of tobacco product: No Have you used tobacco products in the last 12 months: Yes Type of Tobacco Use: None Does any household member use tobacco: Yes ( SMOKES) Alcohol Use: None Do you use any recreational Drugs:: No Lives With: Spouse Lives Where: Home Travel Risk Coronavirus risk:travel/contact w/high risk person: No Has patient experienced Coronavirus symptoms: No Infectious screening In the last 2 months have you had wt loss of >10#?: NO Have you had fever, night sweats or hemotysis?: No Have you traveled outside the country in the last 6 months?: No Isolation: Standard ROS Review of Systems Constitutional: Malaise and Weakness Eyes: Blurred Vision ENTM: negative Nose Discharge or Nose Congestion Respiratoy: No Symptoms Reported; negative Moist Cough, Short of Breath or Wheezing Cardiovascular: No Symptoms Reported; negative Chest Pain Gastrointestinal/Abdominal: Abdominal Pain (UMBILICAL PAIN.), Diarrhea (DARK STOOL.) and Vomiting (VOMITING BLOOD.) Genitourinary: Pain (KNOT RT TESTIS.); negative Dysuria Neurological: See HPI and Weakness; negative Headache or Dizziness Musculoskeletal: No Symptoms Reported; negative Back Pain Integumentary: No Symptoms Reported; negative Rash or Juandice Hematologic/Lymphatic: No Symptoms Reported and See HPI; negative Easy Bleeding or Easy Bruising Endocrine: No Symptoms Reported; negative Increased Thirst or Increased Urine Psychiatric: No Symptoms Reported All Other Systems: Reviewed and Negative PE Vital Signs Vital Signs: Temp Pulse Resp BP BP Pulse Ox 03/13/22 08:48 97.8 F 80 22 136/74 99 12/12/21 16:25 122/71 General Limitations: No Limitations General Appearance: Alert and In No Apparent Distress Head Head Exam: Normal Inspection Eyes Eye exam: Normal Appearance; negative Scleral Icterus or Conjunctival Injection ENT ENT Exam: Normal Exam, Normal Oropharynx, Normal External Ear Exam and TM's Normal Bilaterally Neck Neck Exam: Normal Inspection and Trachea Midline; negative Tenderness Chest Chest Inspection: Normal Inspection and Symmetric Chest Wall Rise; negative Tenderness Respiratory Respiratory Exam: Normal Lung Sounds Bilat; negative Accessory Muscle Use, Chest Wall Tenderness or Respiratory Distress Respiratory Exam: Bilateral: Clear to Auscultation Cardiovascular Cardiovascular Exam: Regular Rate, Normal Rhythm and Normal Heart Sounds; negative Systolic Murmur or Diastolic Murmur Abdominal Exam Abdominal Exam: Normal Inspection, Normal Bowel Sounds, Soft, Tenderness and Other (KNOT RT TESTIS.) Abdominal Tenderness: RLQ, Moderate and Other (PERIUMBILICAL) Rectal Rectal Exam: Deferred Back Back Exam: Normal Inspection; negative (R) CVA Tenderness or (L) CVA Tenderness Extremeties Extremities Exam: Normal Inspection and Normal Capillary Refill Exam: Male: negative Testicular Tenderness, Urethral Discharge, Scrotal Swelling, Penile Swelling or Inguinal Hernial Neurologic Neurological Exam: Alert and Oriented X3; negative Motor Sensory Deficit Psychiatric Psychiatric Exam: Normal Affect and Normal Mood Skin Skin Exam: Intact MDM Differential Diagnosis Differential Diagnosis: Diverticular disease, Gastritus/PUD, Gastroenteritis, Hernia, Inflammatory BD, Trauma, intra-abdominal, Urinary tract infection, Ur olithiasis and Other (comments) (KNOT RT TESTIS.) COURSE Treatment Treatment: SEE ORDERS DONE WHILE PATIENT WAS IN ER. LABS AND XRAY REPORT DISCUSSED WITH PATIENT. Consultation Consultation Comments: SURGICAL CONSULT TO DR. CUNHA. HE IS IN ER EVALUATING PATIENT. HE WILL ADMIT PATIENT. Education/Counseling Education/Counseling: Patient Educated On: Diagnosis ROR Labs Reviewed Laboratory Results Reviewed?: Yes Result Diagrams: 03/14/22 05:31 03/14/22 05:31 Laboratory: 03/13/22 09:17 Stool Stool Culture - Final 03/13/22 09:17 Stool - Final WBC 9.4 X10^3/uL (3.6-10.0) 03/13/22 09:57 RBC 4.90 X10^6/uL (4.7-6.0) 03/13/22 09:57 Hgb 15.7 g/dL (13.5-18.0) 03/13/22 09:57 Hct 44.7 % (42.0-54.0) 03/13/22 09:57 MCV 91.2 fL (80.0-100.0) 03/13/22 09:57 MCH 32.0 pg (27.0-34.0) 03/13/22 09:57 MCHC 35.1 g/dL (33.0-35.0) H 03/13/22 09:57 RDW 12.9 % (11.6-16.5) 03/13/22 09:57 Plt Count 257 X10^3/uL (150.0-450.0) 03/13/22 09:57 MPV 8.6 fL (7.4-11.0) 03/13/22 09:57 Neut % (Auto) 63.5 % (42.0-75.0) 03/13/22 09:57 Lymph % (Auto) 23.0 % (21.0-51.0) 03/13/22 09:57 [place] % (Auto) 7.4 % (0.0-13.0) 03/13/22 09:57 Eos % (Auto) 5.5 % (0.9-2.9) H 03/13/22 09:57 Baso % (Auto) 0.6 % (0.2-1.0) 03/13/22 09:57 Neut # (Auto) 6.0 x10^3/uL (2.2-4.8) H 03/13/22 09:57 Lymph # (Auto) 2.2 X10^3/uL (1.3-2.9) 03/13/22 09:57 [place] # (Auto) 0.7 x10^3/uL (0.3-0.8) 03/13/22 09:57 Eos # (Auto) 0.5 x10^3/uL (0.0-0.2) H 03/13/22 09:57 Baso # (Auto) 0.1 X10^3/uL (0.0-0.1) 03/13/22 09:57 Absolute Nucleated RBC 0.1 /100WBC 03/13/22 09:57 Sodium 140 mmol/L (136-145) 03/13/22 09:57 Corrected Sodium TNP 03/13/22 09:57 Potassium 4.6 mmol/L (3.5-5.1) 03/13/22 09:57 Chloride 107 mmol/L (98-107) 03/13/22 09:57 Carbon Dioxide 29.4 mmol/L (21-32) 03/13/22 09:57 BUN 18 mg/dL (7-18) 03/13/22 09:57 Creatinine 0.86 mg/dL (0.70-1.30) 03/13/22 09:57 Est GFR (MDRD) Af Amer > 60 (>60) 03/13/22 09:57 Est GFR (MDRD) Non-Af > 60 (>60) 03/13/22 09:57 Glucose 101 mg/dL (65-99) H 03/13/22 09:57 Calcium 8.5 mg/dL (8.5-10.1) 03/13/22 09:57 Corrected Calcium TNP 03/13/22 09:57 Total Bilirubin 0.20 mg/dL (0.2-1.0) 03/13/22 09:57 AST 21 Units/L (15-37) 03/13/22 09:57 ALT 43 Units/L (12-78) 03/13/22 09:57 Alkaline Phosphatase 98 Units/L (46-116) 03/13/22 09:57 Total Protein 7.7 g/dL (6.4-8.2) 03/13/22 09:57 Albumin 3.9 g/dL (3.4-5.0) 03/13/22 09:57 Globulin 3.8 g/dL (2.5-4.5) 03/13/22 09:57 Albumin/Globulin Ratio 1.0 Ratio (1.1-2.1) L 03/13/22 09:57 Amylase 38 Units/L (25-115) 03/13/22 09:57 Lipase 93 Units/L (73-393) 03/13/22 09:57 Specimen Type Clean catch urine 03/13/22 09:17 Urine Color Yellow (YELLOW) 03/13/22 09:17 Urine Appearance Clear (CLEAR) 03/13/22 09:17 Urine pH 5.0 (5.0 - 8.0) 03/13/22 09:17 Ur Specific [place] 1.025 (1.000-1.030) 03/13/22 09:17 Urine Protein 1+ (NEGATIVE) 03/13/22 09:17 Urine Glucose (UA) Negative (NEGATIVE) 03/13/22 09:17 Urine Ketones Negative (NEGATIVE) 03/13/22 09:17 Urine Blood 1+ (NEGATIVE) 03/13/22 09:17 Urine Nitrite Negative (NEGATIVE) 03/13/22 09:17 Urine Bilirubin Negative (NEGATIVE) 03/13/22 09:17 Urine Urobilinogen Normal (NORMAL) 03/13/22 09:17 Ur Leukocyte Esterase Negative (NEGATIVE) 03/13/22 09:17 Urine RBC None seen /HPF (0-3) 03/13/22 09:17 Urine WBC None seen /HPF (0-5) 03/13/22 09:17 Ur Squamous Epith Cells Rare /HPF (NEGATIVE) 03/13/22 09:17 Amorphous Sediment Trace /HPF (NEGATIVE) 03/13/22 09:17 Urine Bacteria Negative /HPF (NEGATIVE) 03/13/22 09:17 Ur Culture Indicated? No/not indicated 03/13/22 09:17 Stool Description 10g unformed brown 03/13/22 09:17 Stool Description 10g unformed brown 03/13/22 09:17 Stl Occult Blood (IFOB) Negative (NEGATIVE) 03/13/22 09:17 Stool for White Cells Positive (NEGATIVE) A 03/13/22 09:17 Stl C. diff Tox B Gene Negative (NEGATIVE) 03/13/22 09:17 Stl C. diff [id number] Presumptive negative (NEGATIVE) 03/13/22 09:17 Stool H. pylori Ag Negative (NEGATIVE) 03/13/22 09:17 SARS-CoV-2 (PCR) Negative (NEGATIVE) 03/13/22 09:56 Cryptosporid parvum Ag Negative (NEGATIVE) 03/13/22 09:17 Giardia lamblia Ag Negative (NEGATIVE) 03/13/22 09:17 Influenza Type A (PCR) Negative (NEGATIVE) 03/13/22 09:56 Influenza Type B (PCR) Negative (NEGATIVE) 03/13/22 09:56 RSV (PCR) Negative (NEGATIVE) 03/13/22 09:56 XRAY XRAY Interpreted by: Radiologist (REPORTS NOTED. INCLUDING US TESTIS REPORT.) EKG Rate: 71 [place]: Normal Rhythm: NSR Block: 1 Hypertrophy: None ST: Normal Opioid Opioid Risk Tool Age ([place]mond box if 16-45): No History of Preadolescent Sexual Abuse: No Total: 0 Total Score Risk Category: Low Risk Copyright: Lawrence VALENTINO predicting aberrant behaviors Discharge Plan Diagnosis Discharge Problem: Abdominal pain, Umbilical hernia, GI bleeding, Spermatocele of epididymis Discharge Plan Patient Disposition: ADMITTED INPATIENT Condition: Stable Orders to Discharge Patient Discharge Orders: Discharge (Routine); Ordered 03/14/22 Ordered By: ZULAY CUNHA
[2022-03-13 09:53] LABS: BILIRUBIN,URINE NEGATIVE (NEGATIVE); BLOOD/HEMOGLOBIN,URINE 1+ (NEGATIVE); GLUCOSE, URINE NEGATIVE (NEGATIVE); KETONES,URINE NEGATIVE (NEGATIVE); LEUKOCYTE ESTERASE ,URINE NEGATIVE (NEGATIVE); NITRITES,URINE NEGATIVE (NEGATIVE); PROTEIN,URINE 1+ (NEGATIVE); UROBILINOGEN,URINE NORMAL (NORMAL)
[2022-03-13 09:56] LABS: APPEARANCE,URINE CLEAR (CLEAR); COLOR,URINE YELLOW (YELLOW)
[2022-03-13 10:04] LABS: BACTERIA,URINE NEGATIVE /HPF (NEGATIVE); RBC,URINE NONE SEEN /HPF (0-3); SQUAMOUS EPITHELIAL CELL,UR RARE /HPF (NEGATIVE)
[2022-03-13 10:05] LABS: EOSINOPHILS # (AUTO) 0.5 x10^3/uL (0.0-0.2); HEMATOCRIT 44.7 % (42.0-54.0); HEMOGLOBIN 15.7 g/dL (13.5-18.0); LYMPHOCYTES # (AUTO) 2.2 X10^3/uL (1.3-2.9); MEAN PLATELET VOLUME 8.6 fL (7.4-11.0); MONOCYTES # (AUTO) 0.7 x10^3/uL (0.3-0.8); WHITE BLOOD COUNT 9.4 X10^3/uL (3.6-10.0)
[2022-03-13 10:11] LABS: BASOPHILS # (AUTO) 0.1 X10^3/uL (0.0-0.1); BASOPHILS % (AUTO) 0.6 % (0.2-1.0); EOSINOPHILS % (AUTO) 5.5 % (0.9-2.9); MEAN CORPUSCULAR HGB CONC 35.1 g/dL (33.0-35.0); MEAN CORPUSCULAR VOLUME 91.2 fL (80.0-100.0); MONOCYTES % (AUTO) 7.4 % (0.0-13.0); NEUTROPHILS % (AUTO) 63.5 % (42.0-75.0); RED CELL DISTRIBUTION WIDTH 12.9 % (11.6-16.5)
[2022-03-13 10:15] LABS: ALANINE AMINOTRANSFERASE 43 Units/L (12-78); ALBUMIN 3.9 g/dL (3.4-5.0); ALKALINE PHOSPHATASE 98 Units/L (46-116); AMYLASE 38 Units/L (25-115); ASPARTATE AMINO TRANSFERASE 21 Units/L (15-37); BLOOD UREA NITROGEN 18 mg/dL (7-18); CALCIUM 8.5 mg/dL (8.5-10.1); CARBON DIOXIDE 29.4 mmol/L (21-32); CHLORIDE 107 mmol/L (98-107); CREATININE 0.86 mg/dL (0.70-1.30); LIPASE 93 Units/L (73-393); SODIUM 140 mmol/L (136-145); TOTAL PROTEIN 7.7 g/dL (6.4-8.2); eGFR NON BLACK RACES > 60 (>60)
[2022-03-13 10:46] LABS: CRYPTOSPORIDIUM PARVUM ANTIGEN NEGATIVE (NEGATIVE); GIARDIA LAMBLIA ANTIGEN NEGATIVE (NEGATIVE)
--- NOTE | 2022-03-13 11:41 | US ---
HISTORYRight testicular pain and swelling, abdominal pain, vomitingSTUDYTesticular sonogramTechnique: Multiple grayscale sonographic images were obtained. Limited Doppler evaluation was performed.COMPARISONNoneFINDINGSRight testicle measures 3.8 x 1.6 x 2.6 cm. No intratesticular masses are identified. There is normal blood flow to the right testicle. The epididymis appear normal with the exception of incidental note of a 3.5 x 2.7 x 2.8 mm benign epididymal cyst. There is normal blood flow to the epididymis. Superior to the right testicle there are some tubular lucencies which could represent either varicocele or spermatocele. Left testicle measures 3.3 x 1.6 x 2.6 cm. No intratesticular masses are identified. The epididymis was normal. There is normal blood flow to the testicle and epididymis. No hydroceles are identified on either side.IMPRESSIONNo evidence for testicular torsion, epididymitis, epididymo-orchitis, or testicular massSmall benign right epididymal cystTubular lucencies superior to the right epididymis could represent either varicocele or spermatocele.Electronically signed by: JOSE A RAYMUNDO (Mar 13, 2022 11:38:43)
--- NOTE | 2022-03-13 12:05 | CT ---
HISTORYABD PAIN.brSHARP PAIN IN STOMACHSTUDYABDOMEN/PELVIS W/O CONCOMPARISONCT abdomen and pelvis 03/28/2021.TECHNIQUEMultiple axial images of the abdomen and pelvis were obtained from the lung bases to the pubic symphysis without the administration of IV contrast. Dose reduction techniques including Automated Exposure Control (AEC) and adjustment of mA and kV were utilized.FINDINGSLack of contrast limits evaluation.The lung bases are clear. The heart is normal in size. The liver, gallbladder, spleen, pancreas, adrenal glands, and kidneys have a benign noncontrast appearance. The urinary bladder appears benign. The prostate is normal in size. There is a small fat containing paraumbilical hernia. Diverticulosis of the colon without evidence of diverticulitis. The appendix appears normal. Negative for bowel obstruction. Non-atherosclerotic normal caliber abdominal aorta. Mild No pathologic adenopathy. No free air, free fluid or collection. No acute osseous abnormality.IMPRESSIONSmall fat containing paraumbilical hernia.Electronically signed by: Brannon Almaraz (Mar 13, 2022 12:03:24)
[2022-03-13] MEDS ORDERED: ZOFRAN INJ 4 MG VIAL ONE (14:39)
[2022-03-13] MEDS ORDERED: ZOFRAN INJ 4 MG VIAL IVP ONE (14:42)
[2022-03-13] MEDS ORDERED: ZOFRAN INJ 4 MG VIAL IVP PRN (16:15)
[2022-03-13] MEDS: NS 1,000 ML IV 1,000 ML IV SCH (16:47)
[2022-03-13 17:01] VITALS: BMI 33.1
[2022-03-13] MEDS: PROTONIX INJ 40 MG VIAL IVP SCH ×2 (17:20→20:13)
[2022-03-13] MEDS: NORCO 5/325 MG TAB PO PRN ×2 (17:42→23:40)
[2022-03-14] MEDS: NS 1,000 ML IV 1,000 ML IV SCH (02:01)
[2022-03-14 06:14] LABS: BASOPHILS % (AUTO) 0.4 % (0.2-1.0); EOSINOPHILS # (AUTO) 0.4 x10^3/uL (0.0-0.2); EOSINOPHILS % (AUTO) 5.2 % (0.9-2.9); HEMATOCRIT 40.1 % (42.0-54.0); HEMOGLOBIN 14.3 g/dL (13.5-18.0); LYMPHOCYTES # (AUTO) 2.6 X10^3/uL (1.3-2.9); LYMPHOCYTES % (AUTO) 32.3 % (21.0-51.0); MEAN CORPUSCULAR HEMOGLOBIN 32.2 pg (27.0-34.0); MEAN CORPUSCULAR HGB CONC 35.6 g/dL (33.0-35.0); MEAN CORPUSCULAR VOLUME 90.4 fL (80.0-100.0); MEAN PLATELET VOLUME 9.5 fL (7.4-11.0); MONOCYTES # (AUTO) 0.5 x10^3/uL (0.3-0.8); MONOCYTES % (AUTO) 6.6 % (0.0-13.0); NEUTROPHILS # (AUTO) 4.5 x10^3/uL (2.2-4.8); NEUTROPHILS % (AUTO) 55.5 % (42.0-75.0); RED BLOOD COUNT 4.44 X10^6/uL (4.7-6.0); WHITE BLOOD COUNT 8.2 X10^3/uL (3.6-10.0)
[2022-03-14 06:21] LABS: BLOOD UREA NITROGEN 11 mg/dL (7-18); CARBON DIOXIDE 27.6 mmol/L (21-32); CHLORIDE 107 mmol/L (98-107); CREATININE 0.78 mg/dL (0.70-1.30); SODIUM 142 mmol/L (136-145); eGFR NON BLACK RACES > 60 (>60)
[2022-03-14] MEDS ORDERED: NS 1,000 ML IV 1,000 ML ONE (07:24)
[2022-03-14] MEDS ORDERED: DIPRIVAN VIAL 20 ML ONE (07:26)
[2022-03-14] MEDS: PROTONIX INJ 40 MG VIAL IVP SCH (08:17)
[2022-03-14] MEDS: NORCO 5/325 MG TAB PO PRN (08:18)
[2022-03-14 09:57] VITALS: BP 123/71
[2022-03-14 12:02] LABS: ALANINE AMINOTRANSFERASE 37 Units/L (12-78); ALBUMIN 3.3 g/dL (3.4-5.0); ALKALINE PHOSPHATASE 76 Units/L (46-116); ASPARTATE AMINO TRANSFERASE 19 Units/L (15-37); COR CA(FOR HYPOALB) 8.6 mg/dL (8.5-10.1); TOTAL PROTEIN 6.5 g/dL (6.4-8.2)
== END 2022-03-14 09:04 | disposition home or self-care (01) ==
LOC: ER 08:44 → MED/SURG 08:44
PROVIDERS: ADMIT Surgery; ATTEND Surgery
DX: K42.9 Umbilical hernia without obstruction or gangrene; R10.84 Generalized abdominal pain; R11.2 Nausea with vomiting, unspecified; R04.2 Hemoptysis; Z20.822 Contact with and (suspected) exposure to COVID-19; K92.2 Gastrointestinal hemorrhage, unspecified; A04.5 Campylobacter enteritis

== ENCOUNTER 2022-04-17 09:45 | Observation (INO) ==
--- NOTE | 2022-04-17 09:57 | DR.EXTPAIN ---
HPI Time seen Time Seen by Provider: 04/17/22 09:57 PCP Primary Care Physician: KIKA MATTA HPI Comment HPI Comment: PATIENT IS 46YR OLD MALE IN ER WITH WITH PAIN FROM UMBILICAL HERNIA. HE HIT AREA ON A POST THIS AM AND HAVE HAD INCREASING PAIN SINCE. SCHEDULE TO HAVE HERNIA SURGERY APRIL 26 THIS YEAR. HE IS ALSO HAVING DYSPHAGIA.HE SPIT UP SOME BLOOD ALSO. NO VOMITING OR DIARRHEA. NO FEVER. Complaint/Symptoms Chief Complaint Doctor Comments: UMBILICAL HERNIA PAIN, GI BLEEDING TIMES SEVERAL HOURS. HAVE DYSPHAGIA WELL. Chief Complaint:: PT IS SCHEDULED TO HAVE HERNIA REPAIR ON 04/26/22. THIS MORNING WHILE WORKING HE HIT THE UMBILICAL AREA WITH A T-POST AND SINCE THEN HE HAS HAD SEVERE PAIN AND HAS SPIT UP A SMALL AMOUNT OF BLOOD. COVID-19 Coronavirus risk:travel/contact w/high risk person: No Has patient experienced Coronavirus symptoms: No Nurses notes reviewed Nurses Notes Review: Yes Source History Provided: Patient Mode of arrival Mode of Arrival: Ambulatory Timing Onset of Chief Complaint: 04/17/22 Context History of: None Associated signs and symptoms Associated Signs and Symptoms: None PMH PMH Past Medical History: Yes Past Medical History: Depression Past Medical History Comment: SCHIZOPHERENIA Past Surgical History: No Surgical History: Neurosurgery and Other Past Surgical History Comment: METAL PLATES IN HEAD, EAR SURGERY, NOSE SURGERY Family History History of Family Medical Conditions: Yes Family Medical History: Diabetes Mellitus, Cancer and Hypertension Social History Does patient currently use any type of tobacco product: No Have you used tobacco products in the last 12 months: No Type of Tobacco Use: None Does any household member use tobacco: No Alcohol Use: None Do you use any recreational Drugs:: No Lives With: Alone Lives Where: Home Travel Risk Coronavirus risk:travel/contact w/high risk person: No Has patient experienced Coronavirus symptoms: No Infectious screening In the last 2 months have you had wt loss of >10#?: NO Have you had fever, night sweats or hemotysis?: No Have you traveled outside the country in the last 6 months?: No Isolation: Standard ROS Review of Systems Constitutional: No Symptoms Reported; negative Fever Eyes: No Symptoms Reported ENTM: No Symptoms Reported; negative Nose Discharge or Nose Congestion Respiratoy: No Symptoms Reported and Wheezing; negative Moist Cough or Short of Breath Cardiovascular: No Symptoms Reported; negative Chest Pain Gastrointestinal/Abdominal: Abdominal Pain, Nausea, Vomiting (SPITTING BLOOD.) and Other (DYSPHAGIA.) Genitourinary: No Symptoms Reported; negative Dysuria Neurological: No Symptoms Reported and Weakness; negative Headache or Dizziness Musculoskeletal: No Symptoms Reported; negative Muscle Pain Integumentary: No Symptoms Reported; negative Rash or Juandice Hematologic/Lymphatic: No Symptoms Reported and Easy Bruising Endocrine: No Symptoms Reported; negative Increased Thirst or Increased Urine Psychiatric: No Symptoms Reported All Other Systems: Reviewed and Negative PE Vital Signs Vitals: Temperature 98.1 F Pulse Rate 63 Respiratory Rate 20 Blood Pressure [Right Arm] 123/71 Blood Pressure [Left Arm] 122/71 Blood Pressure 131/86 O2 Sat by Pulse Oximetry 100 General Limitations: No Limitations General Appearance: Alert and In No Apparent Distress Head Head Exam: Normal Inspection and Atraumatic Eyes Eye exam: Normal Appearance and PERRL; negative Scleral Icterus or Conjunctival Injection ENT ENT Exam: Normal Exam, Normal Oropharynx, Normal External Ear Exam and TM's Normal Bilaterally Neck Neck Exam: Normal Inspection and Trachea Midline; negative Tenderness Chest Chest Inspection: Normal Inspection and Symmetric Chest Wall Rise; negative Tenderness Respiratory Respiratory Exam: Normal Lung Sounds Bilat; negative Accessory Muscle Use, Chest Wall Tenderness or Respiratory Distress Respiratory Exam: Bilateral: Rhonchi Cardiovascular Cardiovascular Exam: Regular Rate, Normal Rhythm and Normal Heart Sounds; negative Systolic Murmur or Diastolic Murmur Abdominal Exam Abdominal Exam: Normal Bowel Sounds, Soft and Tenderness Abdominal Tenderness: Severe and Other (UMBICAL AND MID ABDOMINAL TENDERNESS.) Extremities Extremities Exam: Normal Inspection Back Back Exam: Normal Inspection Neurological Neurological Exam: Alert and Oriented X3; negative Motor Sensory Deficit Psychiatric Psychiatric Exam: Normal Affect and Normal Mood Skin Skin Exam: Intact MDM Differential Diagnosis Differential Diagnosis: Other (ABDOMIAL PAIN, INCARCERATED UMBILICAL HERNIA, DYSPHAGIA) COURSE Treatment Treatment: SEE ORDERS DONE WHILE PATIENT WAS IN ER. PATIENT PLACE ON NS AND WAS GIVEN DEMOROL AND ZOFRAN FOR PAIN, DR. CUNHA IN ER EVELUATING PATIENT. HE WILL TAKE PATIENT TO SURGERY. Consultation Consultation Comments: SURGICAL CONSULT. DR CUNHA WANT CT ABD WITH PO CONTRAST. Education/Counseling Education/Counseling: Patient Educated On: Diagnosis ROR Labs Reviewed Laboratory Results Reviewed?: Yes Result Diagrams: 04/17/22 10:15 04/17/22 10:15 Laboratory: WBC 9.7 X10^3/uL (3.6-10.0) 04/17/22 10:15 RBC 4.85 X10^6/uL (4.7-6.0) 04/17/22 10:15 Hgb 15.3 g/dL (13.5-18.0) 04/17/22 10:15 Hct 43.9 % (42.0-54.0) 04/17/22 10:15 MCV 90.4 fL (80.0-100.0) 04/17/22 10:15 MCH 31.5 pg (27.0-34.0) 04/17/22 10:15 MCHC 34.8 g/dL (33.0-35.0) 04/17/22 10:15 RDW 12.9 % (11.6-16.5) 04/17/22 10:15 Plt Count 263 X10^3/uL (150.0-450.0) 04/17/22 10:15 MPV 9.0 fL (7.4-11.0) 04/17/22 10:15 Neut % (Auto) 64.6 % (42.0-75.0) 04/17/22 10:15 Lymph % (Auto) 20.5 % (21.0-51.0) L 04/17/22 10:15 [place] % (Auto) 6.7 % (0.0-13.0) 04/17/22 10:15 Eos % (Auto) 7.5 % (0.9-2.9) H 04/17/22 10:15 Baso % (Auto) 0.7 % (0.2-1.0) 04/17/22 10:15 Neut # (Auto) 6.3 x10^3/uL (2.2-4.8) H 04/17/22 10:15 Lymph # (Auto) 2.0 X10^3/uL (1.3-2.9) 04/17/22 10:15 [place] # (Auto) 0.7 x10^3/uL (0.3-0.8) 04/17/22 10:15 Eos # (Auto) 0.7 x10^3/uL (0.0-0.2) H 04/17/22 10:15 Baso # (Auto) 0.1 X10^3/uL (0.0-0.1) 04/17/22 10:15 Absolute Nucleated RBC 0.0 /100WBC 04/17/22 10:15 Sodium 138 mmol/L (136-145) 04/17/22 10:15 Corrected Sodium TNP 04/17/22 10:15 Potassium 4.4 mmol/L (3.5-5.1) 04/17/22 10:15 Chloride 102 mmol/L (98-107) 04/17/22 10:15 Carbon Dioxide 28.6 mmol/L (21-32) 04/17/22 10:15 BUN 14 mg/dL (7-18) 04/17/22 10:15 Creatinine 0.78 mg/dL (0.70-1.30) 04/17/22 10:15 Est GFR (MDRD) Af Amer > 60 (>60) 04/17/22 10:15 Est GFR (MDRD) Non-Af > 60 (>60) 04/17/22 10:15 Glucose 106 mg/dL (65-99) H 04/17/22 10:15 Calcium 9.0 mg/dL (8.5-10.1) 04/17/22 10:15 Corrected Calcium TNP 04/17/22 10:15 Total Bilirubin 0.50 mg/dL (0.2-1.0) 04/17/22 10:15 AST 29 Units/L (15-37) 04/17/22 10:15 ALT 40 Units/L (12-78) 04/17/22 10:15 Alkaline Phosphatase 100 Units/L (46-116) 04/17/22 10:15 Total Protein 7.8 g/dL (6.4-8.2) 04/17/22 10:15 Albumin 4.0 g/dL (3.4-5.0) 04/17/22 10:15 Globulin 3.8 g/dL (2.5-4.5) 04/17/22 10:15 Albumin/Globulin Ratio 1.1 Ratio (1.1-2.1) 04/17/22 10:15 XRAY XRAY Interpreted by: Radiologist (REPORT NOTED.) and Self EKG Rate: 69 [place]: Normal Rhythm: NSR Block: None Hypertrophy: None ST: Normal Opioid Opioid Risk Tool Age (Desmond box if 16-45): No History of Preadolescent Sexual Abuse: No Total: 0 Total Score Risk Category: Low Risk Copyright: Lawrence VALENTINO predicting aberrant behaviors Discharge Plan Diagnosis Discharge Problem: Umbilical hernia, Abdominal pain, GI bleed, Dysphagia Discharge Plan Patient Disposition: 09 ADMITTED INPATIENT Condition: Stable
[2022-04-17] MEDS ORDERED: ZOFRAN INJ 4 MG VIAL IVP ONE (10:02)
[2022-04-17] MEDS ORDERED: DEMEROL INJ IVP ONE (10:02)
[2022-04-17] MEDS ORDERED: NS 1,000 ML IV 1,000 ML ONE (10:16)
[2022-04-17] MEDS ORDERED: DEMEROL INJ ONE (10:16)
[2022-04-17] MEDS ORDERED: ZOFRAN INJ 4 MG VIAL ONE (10:16)
[2022-04-17 10:38] LABS: BASOPHILS # (AUTO) 0.1 X10^3/uL (0.0-0.1); BASOPHILS % (AUTO) 0.7 % (0.2-1.0); EOSINOPHILS # (AUTO) 0.7 x10^3/uL (0.0-0.2); EOSINOPHILS % (AUTO) 7.5 % (0.9-2.9); HEMATOCRIT 43.9 % (42.0-54.0); HEMOGLOBIN 15.3 g/dL (13.5-18.0); LYMPHOCYTES % (AUTO) 20.5 % (21.0-51.0); MEAN CORPUSCULAR HEMOGLOBIN 31.5 pg (27.0-34.0); MEAN CORPUSCULAR HGB CONC 34.8 g/dL (33.0-35.0); MEAN CORPUSCULAR VOLUME 90.4 fL (80.0-100.0); MONOCYTES # (AUTO) 0.7 x10^3/uL (0.3-0.8); MONOCYTES % (AUTO) 6.7 % (0.0-13.0); NEUTROPHILS # (AUTO) 6.3 x10^3/uL (2.2-4.8); NEUTROPHILS % (AUTO) 64.6 % (42.0-75.0); RED BLOOD COUNT 4.85 X10^6/uL (4.7-6.0); RED CELL DISTRIBUTION WIDTH 12.9 % (11.6-16.5); WHITE BLOOD COUNT 9.7 X10^3/uL (3.6-10.0)
[2022-04-17] MEDS: NS 1,000 ML IV 1,000 ML IV SCH ×2 (10:45→19:21)
[2022-04-17 10:53] LABS: ALANINE AMINOTRANSFERASE 40 Units/L (12-78); ALKALINE PHOSPHATASE 100 Units/L (46-116); ASPARTATE AMINO TRANSFERASE 29 Units/L (15-37); BLOOD UREA NITROGEN 14 mg/dL (7-18); CARBON DIOXIDE 28.6 mmol/L (21-32); CHLORIDE 102 mmol/L (98-107); CREATININE 0.78 mg/dL (0.70-1.30); SODIUM 138 mmol/L (136-145); TOTAL PROTEIN 7.8 g/dL (6.4-8.2); eGFR NON BLACK RACES > 60 (>60)
[2022-04-17] MEDS ORDERED: DILAUDID INJ IVP PRN ×2 (12:16→13:26)
[2022-04-17] MEDS ORDERED: NS 100 ML IV 100 ML ONE ×2 (12:26→13:34)
[2022-04-17] MEDS ORDERED: INVanz INJ 1 GRAM VIAL ONE (12:26)
[2022-04-17] MEDS ORDERED: DILAUDID INJ ONE ×2 (12:26→13:19)
--- NOTE | 2022-04-17 12:29 | EKG ---
Test Reason : PREOP Blood Pressure : */* mmHG Vent. Rate : 69 BPM Atrial Rate : 69 BPM P-R Int : 108 ms QRS Dur : 90 ms QT Int : 370 ms P-R-T Axes : 48 54 17 degrees QTc Int : 396 ms Sinus rhythm with short FL Otherwise normal ECG No previous ECGs available Confirmed by Dallas Lerner ([id number]), online content editor Dixie Hendrix ([id number]) on 04/18/2022 1:59:06 PM Referred By: Confirmed By: Dallas Lerner
[2022-04-17] MEDS: INVanz INJ 1 GRAM VIAL 1 G in NS 100 ML IV 100 ML IV SCH ×2 (12:40→12:42)
[2022-04-17] MEDS ORDERED: MARCAINE 0.25% INJ ONE (12:58)
[2022-04-17] MEDS ORDERED: POLYMYXIN B SULFATE ONE (12:59)
[2022-04-17] MEDS ORDERED: INVanz INJ 1 GRAM VIAL 1 G in NS 100 ML IV 100 ML IV SCH (13:00)
[2022-04-17] MEDS ORDERED: ZOFRAN INJ 4 MG VIAL IVP PRN ×2 (13:14→13:26)
[2022-04-17] MEDS ORDERED: MAGNESIUM SULFATE 50% INJ VIAL ONE (13:15)
[2022-04-17] MEDS ORDERED: ZEMURON 100 MG VIAL ONE (13:15)
[2022-04-17] MEDS ORDERED: PRECEDEX INJ VIAL IVP ONE (13:15)
[2022-04-17] MEDS ORDERED: DIPRIVAN VIAL 20 ML ONE (13:15)
[2022-04-17] MEDS ORDERED: QUELICIN (OR ANECTINE) ONE (13:15)
[2022-04-17] MEDS ORDERED: KETAMINE HCL ONE (13:15)
[2022-04-17] MEDS ORDERED: ULTANE GAS IN ONE (13:15)
[2022-04-17] MEDS ORDERED: BARHEMSYS INJ IVP PRN (13:26)
[2022-04-17] MEDS ORDERED: PHENERGAN INJ 25 MG IM PRN (13:26)
[2022-04-17] MEDS ORDERED: BENADRYL INJ 50 MG VIAL IVP PRN (13:26)
[2022-04-17] MEDS ORDERED: LR 1,000 ML IV 1,000 ML IV ONE ×2 (13:34→14:45)
--- NOTE | 2022-04-17 13:39 | CT ---
HISTORYUMBILICAL PAIN, HERNIASTUDYABDOMEN/PELVIS W/O CONCOMPARISONCT stone protocol 03/13/2022.TECHNIQUEMultiple axial images of the abdomen and pelvis were obtained from the lung bases to the pubic symphysis without the administration of IV contrast. Dose reduction techniques including Automated Exposure Control (AEC) and adjustment of mA and kV were utilized.FINDINGSLack of contrast limits evaluation. The lung bases are clear. The heart is normal in size. The liver, gallbladder, the spleen, pancreas, adrenal glands, and kidneys have a benign noncontrast appearance. The urinary bladder appears benign. The prostate is normal in size. The appendix appears normal. Negative for diverticulitis. Negative for bowel obstruction. Mildly atherosclerotic normal caliber abdominal aorta. No pathologic adenopathy. No free air, free fluid or collection.small fat containing periumbilical hernia similar to prior. No acute osseous abnormality.IMPRESSIONSmall fat containing paraumbilical hernia.Electronically signed by: Brannon Almaraz (Apr 17, 2022 13:38:08)
[2022-04-17 13:51] VITALS: BMI 31.3
[2022-04-17] MEDS ORDERED: PEPCID 20 MG VIAL ONE (14:05)
--- NOTE | 2022-04-17 14:15 | RAD ---
HISTORYPRE OP HERNIASTUDYCHEST, 1 [id number]/25/2022.TECHNIQUEAP view of the chestFINDINGSThe cardiac and mediastinal contours are within normal limits. The lungs are clear without focal consolidation or segmental collapse. No pleural effusion or pneumothorax.IMPRESSIONNo acute pulmonary process.Electronically signed by: Brannon Almaraz (Apr 17, 2022 14:13:38)
[2022-04-17] MEDS ORDERED: BRIDION ONE (14:44)
[2022-04-17] MEDS ORDERED: BACTROBAN TOPICAL OINT ONE (14:47)
[2022-04-17] MEDS ORDERED: BARHEMSYS INJ ONE (15:26)
[2022-04-17] MEDS: D5 1/2 NS 1,000 ML 1,000 ML IV SCH (16:06)
[2022-04-17] MEDS: CLEOCIN 600 MG IV PREMIX 600 MG/50 ML BAG IV SCH ×2 (16:07→21:12)
[2022-04-17] MEDS: DILAUDID INJ IVP PRN ×2 (16:07→20:20)
[2022-04-17] MEDS: ANCEF VIAL 1 GRAM IVP SCH ×2 (16:59→21:12)
[2022-04-18] MEDS: D5 1/2 NS 1,000 ML 1,000 ML IV SCH ×3 (02:09→08:41)
[2022-04-18] MEDS: CLEOCIN 600 MG IV PREMIX 600 MG/50 ML BAG IV SCH (05:37)
[2022-04-18] MEDS: ANCEF VIAL 1 GRAM IVP SCH (05:37)
[2022-04-18] MEDS: DILAUDID INJ IVP PRN (05:42)
[2022-04-18 05:47] LABS: BASOPHILS # (AUTO) 0.1 X10^3/uL (0.0-0.1); EOSINOPHILS # (AUTO) 0.6 x10^3/uL (0.0-0.2); EOSINOPHILS % (AUTO) 4.5 % (0.9-2.9); HEMATOCRIT 40.5 % (42.0-54.0); LYMPHOCYTES # (AUTO) 2.7 X10^3/uL (1.3-2.9); LYMPHOCYTES % (AUTO) 19.8 % (21.0-51.0); MEAN CORPUSCULAR HEMOGLOBIN 31.4 pg (27.0-34.0); MEAN CORPUSCULAR HGB CONC 34.4 g/dL (33.0-35.0); MEAN CORPUSCULAR VOLUME 91.3 fL (80.0-100.0); MEAN PLATELET VOLUME 8.9 fL (7.4-11.0); MONOCYTES # (AUTO) 0.8 x10^3/uL (0.3-0.8); MONOCYTES % (AUTO) 5.5 % (0.0-13.0); NEUTROPHILS # (AUTO) 9.5 x10^3/uL (2.2-4.8); NEUTROPHILS % (AUTO) 69.2 % (42.0-75.0); RED BLOOD COUNT 4.44 X10^6/uL (4.7-6.0); RED CELL DISTRIBUTION WIDTH 12.9 % (11.6-16.5); WHITE BLOOD COUNT 13.7 X10^3/uL (3.6-10.0)
[2022-04-18 05:57] LABS: ALANINE AMINOTRANSFERASE 39 Units/L (12-78); ALBUMIN 3.5 g/dL (3.4-5.0); ALKALINE PHOSPHATASE 79 Units/L (46-116); ASPARTATE AMINO TRANSFERASE 23 Units/L (15-37); BLOOD UREA NITROGEN 11 mg/dL (7-18); CALCIUM 8.4 mg/dL (8.5-10.1); CARBON DIOXIDE 31.2 mmol/L (21-32); CHLORIDE 103 mmol/L (98-107); CREATININE 0.86 mg/dL (0.70-1.30); SODIUM 140 mmol/L (136-145); eGFR NON BLACK RACES > 60 (>60)
[2022-04-18 08:41] VITALS: BP 134/65
--- OUTSIDE RECORDS SUMMARY | 2022-04-18 09:03 | XMS | Continuity of Care Document ---
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 height 67 in Body mass index (BMI) [Ratio] 32.58 kg/m2 Body surface area Derived from formula 2.06 m2 :22 Body temperature 97.9 f Heart Rate 83 /min Comments: Pattern: R egular Respiratory rate 18 /min Comments: Pattern: U nlabored O2 SAT 99 % Comments: Room air Systolic blood pressure 118 mm[Hg] Comments: Patien t Position: Sitting; Cuff Location: Left Arm; Cuff Size: Standard Diastolic blood pressure 81 mm[Hg] Comments: Patie nt Position: Sitting; Cuff Location: Left Arm; Cuff Size: Standard Weight 208 lb Body height 67 in Body mass index (BMI) [Ratio] 32.58 kg/m2 Body surface area Derived from formula 2.06 m2 :04 Body temperature 98.3 f Heart Rate 97 /min Comments: Pattern: R egular Respiratory rate 18 /min Comments: Pattern: U nlabored O2 SAT 97 % Comments: Room air Systolic blood pressure 123 mm[Hg] Comments: Patien t Position: Sitting; Cuff Location: Left Arm; Cuff Size: Standard Diastolic blood pressure 77 mm[Hg] Comments: Patie nt Position: Sitting; Cuff Location: Left Arm; Cuff Size: Standard Weight 230 lb Body height 67 in Body mass index (BMI) [Ratio] 36.02 kg/m2 Body surface area Derived from formula 2.15 m2 :23 Body temperature 97.1 f Heart Rate 88 /min Comments: Pattern: R egular Respiratory rate 18 /min Comments: Pattern: U nlabored O2 SAT 99 % Comments: Room air Systolic blood pressure 131 mm[Hg] Comments: Patien t Position: Sitting; Cuff Location: Left Arm; Cuff Size: Standard Diastolic blood pressure 87 mm[Hg] Comments: Patie nt Position: Sitting; Cuff Location: Left Arm; Cuff Size: Standard Weight 242 lb Body height 67 in Body mass index (BMI) [Ratio] 37.90 kg/m2 Body surface area Derived from formula 2.19 m2 :42 Body temperature 97 f Heart Rate 78 /min Comments: Pattern: R egular Respiratory rate 18 /min Comments: Pattern: U nlabored O2 SAT 98 % Comments: Room air Systolic blood pressure 129 mm[Hg] Comments: Patien t Position: Sitting; Cuff Location: Left Arm; Cuff Size: Standard Diastolic blood pressure 90 mm[Hg] Comments: Patie nt Position: Sitting; Cuff Location: Left Arm; Cuff Size: Standard Weight 250 lb Body height 67 in Body mass index (BMI) [Ratio] 39.16 kg/m2 Body surface area Derived from formula 2.22 m2 :01 Body temperature 97.3 f Heart Rate 102 /min Comments: Pattern: R egular Respiratory rate 19 /min Comments: Pattern: U nlabored O2 SAT 98 % Comments: Room air Systolic blood pressure 121 mm[Hg] Comments: Patien t Position: Sitting; Cuff Location: Left Arm; Cuff Size: Standard Diastolic blood pressure 77 mm[Hg] Comments: Patie nt Position: Sitting; Cuff Location: Left Arm; Cuff Size: Standard Weight 250 lb Body height 67 in Body mass index (BMI) [Ratio] 39.16 kg/m2 Body surface area Derived from formula 2.22 m2 [id number] Body temperature 97 f Heart Rate 101 /min Comments: Pattern: R egular Respiratory rate 18 /min Comments: Pattern: U nlabored O2 SAT 98 % Comments: Room air Systolic blood pressure 146 mm[Hg] Comments: Patien t Position: Sitting; Cuff Location: Left Arm; Cuff Size: Standard Diastolic blood pressure 88 mm[Hg] Comments: Patie nt Position: Sitting; Cuff Location: Left Arm; Cuff Size: Standard Weight 240 lb Body height 67 in Body mass index (BMI) [Ratio] 37.59 kg/m2 Body surface area Derived from formula 2.19 m2 Results Date Description Value Details No Result Information Available Plan of Care Name Dates Details Instructions Bleeding, Upper GI, Unspecified Start: 16-Mar-2022 Instruc tion Type: Patient Education Indication: Rectum bleeding Follow up in 3 months or sooner if needed Start: Instruction Type: Provider Instructions for Treatment Indication: Abdominal obesity and metabolic syndrome High Blood Sugar (Hyperglycemia): blood sugar level Start: 05-Jan-2022 Instruction Type: Patient Education Indication: Abdominal obesity and metabolic syndrome Weight Loss Diets *: health maintenance Start: 05-Jan-2022 Instruction Type: Patient Education Indication: Abdominal obesity and metabolic syndrome Low Blood Sugar (Hypoglycemia) *: blood sugar level Start: 05-Jan-2022 Instruction Type: Patient Education Indication: Abdominal obesity and metabolic syndrome Obesity, Adult Start: 05-Jan-2022 Instruction Type: P atient Education Indication: Abdominal obesity and metabolic syndrome Obesity *: cardiovascular health Start: 05-Jan-2022 Instru ction Type: Patient Education Indication: Abdominal obesity and metabolic syndrome Metabolic Syndrome: diabetes Start: 05-Jan-2022 Instructio n Type: Patient Education Indication: Abdominal obesity and metabolic syndrome Follow up in 2 months or sooner if needed Start: Instruction Type: Provider Instructions for Treatment Indication: Chronic midline low back pain, unspecified whether sciatica present Follow up after consult/ ENT-DR Oakley Start: 11-Sep-2021 Instruction Type: Provider Instructions for Treatment Indication: History of seizure disorder Follow up after consult with ENT/Dr Thompson Start: Instruction Type: Provider Instructions for Treatment Indication: Dizziness due to old head injury Follow up in 10 days to 2 weeks Start: 25-Aug-2021 Instruc tion Type: Provider Instructions for Treatment Indication: Cellulitis of right external ear Cellulitis: skin infection Start: 25-Aug-2021 Instruction Type: Patient Education Indication: Cellulitis of right external ear Sinusitis *: allergies Start: 25-Aug-2021 Instruction Type : Patient Education Indication: Clinical sinusitis Sinus Headache: face pain Start: 25-Aug-2021 Instruction T ype: Patient Education Indication: Facial pain Labyrinthitis and Vestibular Neuritis: dizziness Start: Instruction Type: Patient Education Indication: Dizziness due to old head injury Dizziness *: vertigo Start: 25-Aug-2021 Instruction Type: Patient Education Indication: Dizziness due to old head injury Skin Exam: abcd guidelines Start: 25-Aug-2021 Instruction Type: Patient Education Indication: Auricle ulcer, limited to breakdown of skin Follow up if no improvement or if sympto ms worsen. Patient instructed to go to the ER or [facility] Start: 10-May-2021 Instruction Type: Provider Instructions for Treatment Indication: Chronic midline low back pain, unspecified whether sciatica present Follow up in 3 months Start: 10-May-2021 Instruction Type: Provider Instructions for Treatment Indication: Chronic midline low back pain, unspecified whether sciatica present Follow up after consult Start: 10-May-2021 Instruction Typ e: Provider Instructions for Treatment Indication: Umbilical hernia without obstruction and without gangrene Follow up -Call or Make appt after diagnostic tests to review results. Start: 10-May-2021 Instruction Type: Provider Instructions for Treatment Indication: Umbilical hernia without obstruction and without gangrene Follow up if no improvement or if symptoms worsen Start: Instruction Type: Provider Instructions for Treatment Indication: Suspected COVID-19 virus infection Follow up if no improvement or if symptoms worsen Start: Instruction Type: Provider Instructions for Treatment Indication: Bronchitis Smoking Counseling Education Start: 04-Jan-2021 Instructio n Type: Patient Education Indication: Suspected COVID-19 virus infection Proper Sitting, Standing, and Lifting *: back pain Start: 20-Sep-2020 Instruction Type: Patient Education Indication: Chronic midline low back pain, unspecified whether sciatica present Sciatica: low back pain Start: 30-Sep-2020 Instruction Typ e: Patient Education Indication: Chronic midline low back pain, unspecified whether sciatica present Low Back Pain Start: 30-Sep-2020 Instruction Type: P atient Education Indication: Chronic midline low back pain, unspecified whether sciatica present Smoking Counseling Education Start: 30-Sep-2020 Instructio n Type: Patient Education Indication: Chronic midline low back pain, unspecified whether sciatica present Follow up if no improvement or if sympto ms worsen. Patient instructed to go to the ER or [facility] Start: 27-May-2020 Instruction Type: Provider Instructions for Treatment Indication: Chronic midline low back pain, unspecified whether sciatica present Follow up in 3 months Start: 27-May-2020 Instruction Type: Provider Instructions for Treatment Indication: Chronic midline low back pain, unspecified whether sciatica present Sciatica: low back pain Start: 27-May-2020 Instruction Typ e: Patient Education Indication: Chronic midline low back pain, unspecified whether sciatica present Proper Sitting, Standing, and Lifting *: back exercises Sta rt: 27-May-2020 Instruction Type: Patient Education Indication: Chronic midline low back pain, unspecified whether sciatica present Low Back Pain Start: 27-May-2020 Instruction Type: P atient Education Indication: Chronic midline low back pain, unspecified whether sciatica present Follow up - Keep appt as scheduled Start: 23-Mar-2020 Inst ruction Type: Provider Instructions for Treatment Indication: Flu-like symptoms Follow up if no improvement or if sympto ms worsen. Patient instructed to go to the ER or [facility] Start: 23-Mar-2020 Instruction Type: Provider Instructions for Treatment Indication: Flu-like symptoms Follow up in 2 months Start: 02-Mar-2020 Instruction Type: Provider Instructions for Treatment Indication: History of depression Follow up if no improvement or if sympto ms worsen. Patient instructed to go to the ER or [facility] Start: 02-Mar-2020 Instruction Type: Provider Instructions for Treatment Indication: History of depression Neck Spasms *: neck Start: 02-Mar-2020 Instruction Type: P atient Education Indication: Muscle spasms of neck Low Back Pain: Brief Version *: back pain Start: 0 Instruction Type: Patient Education Indication: Chronic midline low back pain, unspecified whether sciatica present Follow up after consult with Dr Crowell Start: 17-Jun-2018 I nstruction Type: Provider Instructions for Treatment Indication: History of hepatitis C Follow up -Call after diagnostic tests to review lab r esults . Start: 17-Jun-2018 Instruction Type: Provider Instructions for Treatment Indication: History of hepatitis C Follow up if no improvement or if symptoms worsen Start: Feb-2018 Instruction Type: Provider Instructions for Treatment Indication: Suprascapular entrapment neuropathy of left side Follow up -Call or Make appt after diagnostic tests to review results. 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 Start: 19-Feb-2018 Inst ruction Type: Patient Education Indication: Suprascapular entrapment neuropathy of left side Follow up after consult with Dr Mervat saeed 11/14/2017@ 10:00am in [place] Office Start: 01-Nov-2017 Instruction Type: Provider Instructions for Treatment Indication: History of hepatitis C Follow up in 1 day for repeat Lincocin inj in AM Start: Oct-2017 Instruction Type: Provider Instructions for Treatment Indication: Acute asthmatic bronchitis Follow up after consult with Dr Crowell Start: 08-Oct-2017 I nstruction Type: Provider Instructions for Treatment Indication: History of hepatitis C Follow up if no improvement or if symptoms worsen Start: Instruction Type: Provider Instructions for Treatment Indication: Abdominal pain, acute, generalized Follow up in 1 month Start: 08-Oct-2017 Instruction Type: Provider Instructions for Treatment Indication: History of hepatitis C Follow up -Call or Make appt after diagnostic tests to review results. Start: 23-Jul-2017 Instruction Type: Provider Instructions for Treatment Indication: Increased ammonia level Follow up if no improvement or if symptoms worsen Start: Jul-2017 Instruction Type: Provider Instructions for Treatment Indication: Abdominal pain, RUQ Planned Observations CMP ([id number])Indication: Incarcerated umbilical hernia On: :16 Request CBC, PLATELETS & AUT DIFF ([id number])Indication: Incarcera vielka umbilical hernia On: :16 Request HGB A1C ([id number])Indication: Abdominal obesity and metab olic syndrome On: :37 Request Comments: 01-05-2022 A1C is @ 4.3 and reviewed with patient DRUG TEST PRSMV DIR OPT OBS ([id number])Indic ation: Encounter for monitoring opioid maintenance therapy On: :14 Request DRUG ASSAY-TOT PHENYTOIN ([id number])Indication: History of seizure disorder On: :04 Request CRP ([id number])Indication: Auricle ulcer, limited to break down of skin On: :52 Request CMP ([id number])Indication: Auricle ulcer, limited to break down of skin On: :51 Request CBC, PLATELETS & AUT DIFF ([id number])Indicat ion: Auricle ulcer, limited to breakdown of skin On: :50 Request Sed Rate ([id number])Indication: Facial pain On: :50 Request C&S Wound ([id number])Indication: Auricle ulcer, limited to breakdown of skin On: :46 Request Comments: open wound right auricle with serosanguineous drainage, to go to [facility] for C&S of sore CMP ([id number])Indication: Umbilical hernia without obstruction and without gangrene On: 43-Wgg-315818:49 Request CBC w/differential ([id number])Indication: Um bilical hernia without obstruction and without gangrene On: 45-Fpg-728129:48 Request DRUG ASSAY-TOT PHENYTOIN ([id number])Indication: History of seizure disorder On: 13-Fiu-640054:45 Request DRUG TEST PRSMV DIR OPT OBS ([id number])Indic ation: Encounter for monitoring opioid maintenance therapy On: 93-Isp-606659:40 Request AIT Covid (Send out) ([id number])Indication: Suspected COVI D-19 virus infection On: 85-Hyx-670996:08 Request C&S Wound ([id number])Indication: Pain in toe of left foot On: :03 Request Comments: C&S any dr feliciano at left 4 th toe s/p recent punctire wound. CMP ([id number])Indication: History of seizure disorder On: 115:42 Request CBC, PLATELETS & AUT DIFF ([id number])Indication: History o f seizure disorder On: 70-Zom-956684:42 Request LIPID PANEL ([id number])Indication: History of seizure disorder O n: 62-Tju-124172:42 Request Sed Rate ([id number])Indication: Chronic midl ine low back pain, unspecified whether sciatica present On: 29-Tvk-838722:41 Request Cutler Virus/Covid-19 ([id number])Indication: Suspected COV ID-19 virus infection On: 3-Kxt-771010:50 Request Cutler Virus/Covid-19 ([id number])Indication: Suspected COV ID-19 virus infection On: :59 Request Comments: Collected at 8:55 a.m./Throat/ M CHOLO Becerra/ Request expanded respiratory panel Sed Rate ([id number])Indication: Muscle spasms of neck On: 16:19 Request CMP ([id number])Indication: History of hepatitis C On: 016:19 Request DRUG ASSAY-FREE PHENYTOIN ([id number])Indication: History o f seizure disorder On: 06-Alp-438798:16 Request CBC, PLATELETS & AUT DIFF ([id number])Indication: History o f hepatitis C On: :15 Request LIPID PANEL ([id number])Indication: History of hepatitis C On: 16:15 Request CMP ([id number])Indication: History of hepatitis C On: 016:14 Request AMMONIA ([id number])Indication: History of hepatitis C On: 15:48 Request SED RATE ERYTHROCYTE ([id number])Indication: Epistaxis, rec urrent On: 28-Thv-292151:47 Request BLEEDING TIME ([id number])Indication: Epistaxis, recurrent On: :47 Request CBC, PLATELETS & AUT DIFF ([id number])Indication: Epistaxis , recurrent On: 42-Iyh-737252:47 Request BMP ([id number])Indication: History of hepatitis C On: 915:46 Request HEPATIC FUNCTION PANEL ([id number])Indication: History of h epatitis C On: :46 Request DRUG ASSAY-TOT PHENYTOIN ([id number])Indication: History of seizure disorder On: 50-Vuk-681283:45 Request AMMONIA ([id number])Indication: Increased ammonia level On: 10:25 Request AMMONIA ([id number])Indication: Increased ammonia level On: 8:52 Request Hemoccult Cards ([id number])Indication: Hemat emesis, presence of nausea not specified On: 18-Bsl-636862:56 Request Hemoccult Cards ([id number])Indication: Hemat emesis, presence of nausea not specified On: 30-Win-763149:56 Request Hemoccult Cards ([id number])Indication: Hemat emesis, presence of nausea not specified On: 50-Vih-647504:56 Request BLD CNT, COMPL CBC W/AUTO DIFF WBC ([id number])Indication: Abdominal pain, acute, generalized On: 39-Mbs-73280:36 Request Comments: Manual dif f please METABOLIC PANEL, BASIC ([id number])Indication: Abdominal pa in, acute, generalized On: 05-Ado-57274:35 Request AMMONIA ([id number])Indication: Elevated liver enzymes On: 9:35 Request HEPATIC FUNCTION PANEL ([id number])Indication: Elevated shai er enzymes On: 62-Cjl-68648:35 Request Hepatitis C Quant, DNA Probe, Amplified ([id number])Indication: History of hepatitis C On: 46-Lkq-48089:34 Request HEPATITIS C ANTIBODY ([id number])Indication: History of hep atitis C On: 61-Jtx-02677:34 Request AMMONIA ([id number])Indication: Increased ammonia level On: 15:29 Request Hepatitis C Quant, DNA Probe, Amplified ([id number])Indication: History of hepatitis C On: 0-Fci-469489:18 Request HEPATITIS C ANTIBODY ([id number])Indication: History of hep atitis C On: 3-Hvu-796834:18 Request CBC, PLATELETS & AUT DIFF ([id number])Indication: Abdominal pain, RUQ On: 1-Jbh-076572:14 Request BMP ([id number])Indication: Elevated liver enzymes On: 20-Jul-2017 16:13 Request HEPATIC FUNCTION PANEL ([id number])Indication: Elevated shai er enzymes On: 1-Mqs-928275:13 Request Planned Procedures CHEST XRAY, PA & LATERAL ([id number])By: Juan Manuel On: 04-Apr-2022 I Katya Waller REPAIR OF INCARCERATED UMBILICAL On: 04-Apr-2022 Intent HERNIA IN PATIENT AGE 5 YEARS OR OLDER ([id number])By: Katya Bauman PATIENT SCREENED FOR TOBACCO USE AND On: 04-Apr-2022 Int ent IDENTIFIED A TOBACCO USER ([id number])By: Katya Bauman SCREENING FOR TOBACCO USE (4004F)By: On: 04-Apr-2022 Int ent Katya Bauman COLONOSCOPY WITH BIOPSY OF COLON On: 16-Mar-2022 Intent ([id number])By: Radha Becerra PATIENT SCREENED FOR TOBACCO USE AND On: 16-Mar-2022 Int ent IDENTIFIED A TOBACCO USER ([id number])By: Kerline Valenzuela SCREENING FOR TOBACCO USE (4004F)By: On: 16-Mar-2022 Int ent Kerline Valenzuela PATIENT SCREENED FOR TOBACCO USE AND On: 05-Jan-2022 Int ent IDENTIFIED A TOBACCO USER ([id number])By: Nayana Mcclendon SCREENING FOR TOBACCO USE (4004F)By: On: 05-Jan-2022 Int Nayana Farrell PATIENT SCREENED FOR TOBACCO USE AND On: 08-Sep-2021 Int ent IDENTIFIED A TOBACCO NON-USER ([id number])By: Nayana Mcclendon SCREENING FOR TOBACCO USE (4004F)By: On: 08-Sep-2021 Int Nayana Farrell XR PARANASAL SINUSES, LATERAL, On: 25-Aug-2021 Intent ORONA AND YE VIEWS ([id number])By: Amie Fleming NP XR PARANASAL SINUSES, LATERAL, On: 25-Aug-2021 Intent ORONA AND YE VIEWS ([id number])By: Amie Fleming NP SCREENING FOR TOBACCO USE (4004F)By: On: 25-Aug-2021 Int ent Hakan Nayana PATIENT SCREENED FOR TOBACCO USE AND On: 10-May-2021 Int ent IDENTIFIED A TOBACCO NON-USER ([id number])By: Nayana Mcclendon SCREENING FOR TOBACCO USE (4004F)By: On: 10-May-2021 Int ent Nayana Mcclendon SMOKING CESSATION COUNSELING FOR 3 TO On: 04-Jan-2021 In tent 10 MINUTES ([id number])By: Berenice Allison SMOKING CESSATION COUNSELING FOR 3 TO On: 30-Sep-2020 In tent 10 MINUTES ([id number])By: Berenice Allison X-RAY EXAM OF LOWER SPINE ([id number])By: On: 19-Feb-2018 Int ent Amie Fleming NP X-RAY EXAM OF THORACIC SPINE On: 19-Feb-2018 Intent ([id number])By: Amie Fleming NP X-RAY EXAM OF NECK SPINE ([id number])By: On: 19-Feb-2018 Inte nt Amie Fleming NP ADMINISTRATION FEE ([id number])By: Hernan On: 02-Nov-2017 Int ent Radha XR ABDOMEN, SUPINE AND UPRIGHT VIEWS On: 08-Oct-2017 Int ent WITH PA CHEST ([id number])By: Amie Fleming NP CT SCAN OF ABDOMEN AND PELVIS WITH On: 23-Jul-2017 Inten t CONTRAST ([id number])By: Amie Fleming NP Com ments: With oral and IV contrast if labs are compatible. Instructions Name Dates Details Incarcerated Hernia Start: 04-Apr-2022 Instruction Type: P atient Education Indication: Incarcerated umbilical hernia Verified Opioid Agreement Start: 04-Apr-2022 Instruction T ype: Provider Instructions for Treatment Indication: Incarcerated umbilical hernia Follow [facility] Start: 04-Apr-2022 Instruction Type: P atient Education Indication: Incarcerated umbilical hernia How to Access Health Information Online using Patient Portal and 3rd [employer] Apps Start: 04-Apr-2022 Instruction Type: Patient Education Indication: Incarcerated umbilical hernia Verified Opioid Agreement Start: 16-Mar-2022 Instruction T ype: Provider Instructions for Treatment Indication: Rectum bleeding Follow [facility] Start: 16-Mar-2022 Instruction Type: P atient Education Indication: Rectum bleeding How to Access Health Information Online using Patient Portal and [employer] Apps Start: 16-Mar-2022 Instruction Type: Patient Education Indication: Rectum bleeding Verified Opioid Agreement Start: 05-Jan-2022 Instruction T ype: Provider Instructions for Treatment Indication: [facility] (current) use of opiate analgesic [facility] Start: 05-Jan-2022 Instruction Type: P atient Education Indication: [facility] (current) use of opiate analgesic How to Access Health Information Online using Patient Portal and [employer] Apps Start: 05-Jan-2022 Instruction Type: Patient Education Indication: [facility] (current) use of opiate analgesic PDMP information checked Start: 05-Jan-2022 Instruction Ty pe: Provider Instructions for Treatment Indication: Encounter for monitoring opioid maintenance ther apy PDMP information checked Start: 11-Sep-2021 Instruction Ty pe: Provider Instructions for Treatment Indication: Chronic midline low back pain, unspecified whether sciatica present Verified Opioid Agreement Start: 08-Sep-2021 Instruction T ype: Provider Instructions for Treatment Indication: Chronic midline low back pain, unspecified whether sciatica present [facility] Start: 08-Sep-2021 Instruction Type: P atient Education Indication: Cellulitis of right external ear How to Access Health Information Online using Patient [employer] and [employer] Apps Start: 08-Sep-2021 Instruction Type: Patient Education Indication: Cellulitis of right external ear Verified Opioid Agreement Start: 25-Aug-2021 Instruction T ype: Provider Instructions for Treatment Indication: Auricle ulcer, limited to breakdown of skin [facility] Start: 25-Aug-2021 Instruction Type: P atient Education Indication: Auricle ulcer, limited to breakdown of skin How to Access Health Information Online using Patient Portal and [employer] Apps Start: 25-Aug-2021 Instruction Type: Patient Education Indication: Auricle ulcer, limited to breakdown of skin Ventral Hernia Start: 10-May-2021 Instruction Type: P atient Education Indication: Umbilical hernia without obstruction and without gangrene Verified Opioid Agreement Start: 10-May-2021 Instruction T ype: Provider Instructions for Treatment 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 Follow [facility] Start: 10-May-2021 Instruction Type: P atient Education 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 How to Access Health Information Online using Patient Portal and [employer] Apps Start: 10-May-2021 Instruction Type: Patient Education Indication: [facility] (current) use of opiate analgesic PDMP information checked Start: 10-May-2021 Instruction Ty pe: Provider Instructions for Treatment 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 Verified Opioid Agreement Start: 04-Feb-2021 Instruction T ype: Provider Instructions for Treatment Indication: Chronic midline low back pain, unspecified whether sciatica present PDMP information checked Start: 04-Feb-2021 Instruction Ty pe: Provider Instructions for Treatment Indication: Chronic midline low back pain, unspecified whether sciatica present Follow [facility] Start: 04-Jan-2021 Instruction Type: P atient Education Indication: Suspected COVID-19 virus infection How to Access Health Information Online using Patient Internet Mall and [employer] Apps Start: 04-Jan-2021 Instruction Type: Patient Education Indication: Suspected COVID-19 virus infection Verified Opioid Agreement Start: 12-Nov-2020 Instruction T ype: Provider Instructions for Treatment Indication: Chronic midline low back pain, unspecified whether sciatica present PDMP information checked Start: 12-Nov-2020 Instruction Ty pe: Provider Instructions for Treatment Indication: Chronic midline low back pain, unspecified whether sciatica present PDMP information checked Start: 30-Sep-2020 Instruction Ty pe: Provider Instructions for Treatment Indication: Chronic midline low back pain, unspecified whether sciatica present Verified Opioid Agreement Start: 30-Sep-2020 Instruction T ype: Provider Instructions for Treatment Indication: Chronic midline low back pain, unspecified whether sciatica present Follow Stalkthis Start: 30-Sep-2020 Instruction Type: P atient Education Indication: Chronic midline low back pain, unspecified whether sciatica present How to Access Health Information Online using Patient Portal and [employer] Apps Start: 30-Sep-2020 Instruction Type: Patient Education Indication: Chronic midline low back pain, unspecified whether sciatica present PDMP information checked Start: 06-Jul-2020 Instruction Ty pe: Provider Instructions for Treatment Indication: Chronic midline low back pain, unspecified whether sciatica present Verified Opioid Agreement Start: 27-May-2020 Instruction T ype: Provider Instructions for Treatment Indication: Encounter for monitoring opioid maintenance ther apy PDMP information checked Start: 27-May-2020 Instruction Ty pe: Provider Instructions for Treatment Indication: Encounter for monitoring opioid maintenance ther apy Encounters Review On: 18-Apr-2022 8:48 [facility] Office Visit On: 04-Apr-2022 15:25 Encounter Diagnosis: Incarcerated umbilical hernia End : 04-Apr-2022 15:48 [facility] General Surgery Office Visit On: 16-Mar-2022 8:30 Encounter Reason: Follow Up - Pt states, "I was throwing up blood over the weekend. This morning I woke up at 3 am with bed and clothes wet. I thought something had got spilled in bed, but when I got up it was blood on b End: 16-Mar-2022 9:51 ed." Pt recenlty had a EGD over the week end and would found to have a GI Bleed. Encounter Diagnosis: Rectum bleeding, Umbilical hernia without obstruction and without gangrene, History of seizure disorder, History of depression, History of hepatitis C [facility] General Surgery Office Visit On: 05-Jan-2022 10:30 Encounter Reason: Follow Up - 01-05-2022 O.V. for routine follow up. UDS done this month. Pt initially was scheduled for refill for his Tramadol but since his last visit he has been referred to and has started seeing a End: 05-Jan-2022 18:38 provider for pain management at [facility] in [place]. I reviewed with him the controlled substance agreement signed and explained that now his pain management provider will need to prescribe his mu scle relaxers or any other medications f or pain or sleep. He is also encouraged to make sure all of his providers are aware of all of his medications as he also sees [facility] mental health manufacturing planner at [facility] and some of his meds are sedat ing. I explained the risks of respiratory depression if he takes opioids with some muscle relaxers, sleep meds, and anxiety meds. We will continue to see him for physical illnesses and episodic car e with other chronic health problems.He verbalizes an understanding of this policy and risks and will follow up with his pain optical store manager for his other needed refills., Pt is also concerned that he may be deve loping an isue with poss DM. - He reports that the provider at [facility] was concerned that his glucose was elevated on some lab work done there and asked us to viry browne on this. The patient says he does a t times feel weak, shaky, and slightly nauseous at times. He says his appetite is not real good and he admits he probably does not eat well. He has tried to stop sugary drinks, sweet tea, cold drinks an d is drinking more water. He says he does have some urinary frequency but feels it is r/t to the water he is drinking. 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 He s ays other than frequent urination and in creased water intake he denies excessive hunger and if anything has a decreased appetite. He is a little overweight and we discussed he may have some impaired glu cose metabolism and or metabolic syndrom e or insulin resistance and we will try to continue to monitor for sx's changing.A1C in office today is 4.3% and this is equal to an average eAG daily blood gluco se of 77 on the diabetes chart. We revie wed the need for balanced meals and lower Carbs.Encounter Diagnosis: Chronic midline low back pain, unspecified whether sciatica present, Encounter for monitoring opioid maintenance therapy, Muscle spasms of neck, History of seizur e disorder, computer terminal operator (current) use of opiate analgesic, Abdominal obesity and metabolic syndrome [facility] Office Visit On: 08-Sep-2021 13:30 Encounter Reason: Ear pain - The onset o f the ear pain has been gradual and has been occurring in a persistent pattern for days. The course has been constant. The ear pain is described as a moderate pressure. The ear noe End: 11-Sep-2021 17:49 n is described as being located in the i nner ear. The pain is felt in both sides. Note for "Ear pain": Accompanied by dizziness, bloody discharge, and cold sweats.------09/08/2021: Follow up on ear pain and ear lesion. Today pt C/O itching and ringing of both ears. And ears having a bad smell. Pt also C/O painful swallowing. Referral sent to ENT, appt next Encounter Diagnosis: Auricle ulcer, limited to breakdown of skin, Cellulitis of right external ear, Histor y of seizure disorder, Chronic midline low back pain, unspecified whether sciatica present [facility] Office Visit On: 25-Aug-2021 14:30 Encounter Reason: Ear pain - The onset o f the ear pain has been gradual and has been occurring in a persistent pattern for days. The course has been constant. The ear pain is described as a moderate pressure. The ear noe End: 25-Aug-2021 18:20 n is described as being located in the i nner ear. The pain is felt in both sides. Note for "Ear pain": Accompanied by dizziness, bloody discharge, and cold sweats., Chest pain - The onset of the chest pain has been gradual (He thinks it is some arthritis or nerve pinched in his shoulder joint.). The chest pain has been occurring for days in a recurrent pattern. Eac h episode lasts minutes. The course has been constant. The level of severity is moderate. The chest pain is described as left chest pain (states around the axillary). It is further described as a sharp pain. The pain radiates to the left arm (pt states left arm gets "tingly"). There has been associated dizziness (also has had some ear and sinus problems), headache (especially around the eyes) and shou lder pain, while there has been no abdom inal pain, nausea, neck pain or shortness of breath.Encounter Diagnosis: Auricle ulcer, limited to breakdown of skin, Dizziness due to old head injury, Facial pain, Clinical sinusitis, Cellulitis of right external ear, History of seizure d isorder [facility] Office Visit On: 10-May-2021 13:00 Encounter Reason: Neck pain - The onset of the neck pain has been sudden and has been occurring in a persistent pattern for 1 week. The course has been increasing. The neck pain is described as moderate. Pt is in office End: 10-May-2021 20:20 today with C/O neck pain. States "when I turn my head either way it feels like it's pulling on my back". Describes pain as a "shocking, stabbing pain". , Leg pain - The leg pain began suddenly a nd has been occurring for 2 months. The symptoms have been occurring in an increasing pattern. The symptoms are described as a ache (Describes as "locking up") an d sharp, stabbing pain and are moderate to severe. The symptoms occur on exertion and at night. There is involvement of the left lower extremity. There are no precipitating factors. Aggravating factors include exertion. There are no relieving factors. Pt also C/O R leg pain today in office. Describes the pain as "locking up". , Hernia, Umbilical - This hernia is thought to be acquired. Symptoms include bulge at the umbilicus (s tates "it bulges out after I eat"). The pain is located in the mid-abdomen. The pain radiates to the mid-abdomen and lower abdomen. The patient describes the pain as sharp and aching. Onset was gradual month(s) ago. The episodes occur daily a nd last for hours. The patient describes this as moderate in severity and worsening. Symptoms are exacerbated by straining. Symptoms are relieved by recumbency. A ssociated symptoms do not include nausea , vomiting, constipation, obstipation or fever. The patient is not currently being treated for this problem. Pt stated he has a bulging from his belly button toda y while in office. Pain with palpation, States the pain radiates all around the umbilicus and pain is worse when eating. Encounter Diagnosis: Chronic midline low back pain, unspecified whether sciatica present, History of seizure disorder, Encounter for monitoring opioid maintena nce therapy, [facility]CI (current) use of opiate analgesic, Umbilical hernia without obstruction and without gangrene [facility] Refill On: 04-Feb-2021 8:30 Encounter Reason: [facility] Chronic midline low back pain, unspecified whether sciatica present End: 04-Feb-2021 8:45 [facility] Office Visit On: 04-Jan-2021 18:00 Encounter Reason: covid test - Patient i s here today for a covid test. He complains fever, headache, cough with occasional yellow sputum, body aches x 5 days. Reports he is also having some SOB with activity. Reports he End: 05-Jan-2021 8:56 started having N/V yesterday, denies blo od in it. Reports normal BMs. Reports fever got up to 102 F. Reports his PCP is Libertad Fleming. Pt is getting a covid test today. Reports he does smoke occasionally. Den ies any cardiovascular issues. Reports h e has a hx of seizures and mental health issues. Reports he was exposed over the weekend, denies being vaccinated.Encounter Diagnosis: Suspected COVID-19 virus infection, Bronchitis, Nausea and vomiting in adult [facility] Refill On: 12-Nov-2020 16:33 Encounter Diagnosis: Muscle spasms of ne ck, Chronic midline low back pain, unspecified whether sciatica present End: 12-Nov-2020 16:54 [facility] Nurse Ordered Procedures/Labs On: 08-Oct-2020 8:47 Encounter Reason: Foot pain - The onset of the foot pain has been sudden (after stepping on something in the field two days ago with puncture wound to the left 4 th toe. It initially swelled and yesterday it drained some End: 08-Oct-2020 12:40 pus. Today he has pain when he tries to stand on his foot. He says his got a piece of glass out of his foot yesterday. We will send orders for a foot x ray and a C&S of any drainage from his w ound on his toe.) and has been occurring in a persistent pattern for 2 days. The course has been increasing. The foot pain is described as moderate.Encounter Diagnosis: Acute foot pain, left, Pain in toe of left foot, Puncture wound of foot [facility] Office Visit On: 30-Sep-2020 15:08 Encounter Reason: Back pain - The onset of the back pain has been gradual and has been occurring for 2 years. The back pain is characterized as a dull ache. The back pain radiates to the left thigh. The symptoms are aggr End: 01-Oct-2020 15:23 avated by lying down. Note for "Back noe n": Patient is here today with complaints of back pain. He states pain has been going on for a couple of years now. He went to the ER back in July. Dr. Kwesi paz d him he needed surgery on his back. He has not gotten surgery due to he has no insurance. Pt stases he is on tramadol, but he is currently out. He will need it refilled today. Pt states the pain radiat ed down his left leg. His leg will feel numb and tingling. Pt states early in the morning when he wakes up, he tried to get up, and he can not move. Pt states he feels like his paralysed when he wakes up.Encounter Diagnosis: History of seizure disorder, Chronic mid line low back pain, unspecified whether sciatica present [facility] Refill On: 06-Jul-2020 17:10 Encounter Diagnosis: Chronic midline low back pain, unspecified whether sciatica present End: 06-Jul-2020 17:15 [facility] Office Visit On: 27-May-2020 10:40 Encounter Reason: Neck pain - The neck p ain has been occurring in a persistent pattern for 2 years. The course has been recurrent. The neck pain is described as severe. Note for "Neck pain": Pt is here today with complai End: 27-May-2020 18:37 nts of having neck pain and lower back p ain. Pt has had this pain for several years. The pain goes down into his arms and make the finger tips tingle. He has a sharp pain in his lower back and neck. He use to take Tramadol and Tizanidine and it does help him with the pain. He can't get comfortable sitting or laying down at times. Pt pain level is a 10/10 today in the office. Pt is here today to get refills today. He is not allergic to Asa , Some, PCN, Adderall. Pt updated his paperwork today while in the office., Lower back pain - The onset of the lower back pain has been gradual (05-27-2020 Pt has had long history of lower back pain and multiple joint p ain from neck to lower back and radiates toward hips. 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 The addition of Meloxicam and muscle relaxer has helped but he used to use Tramadol and it helped. He has been incarcerated but has been out for almost a y ear and continues on Probation and has r andom drug screens there also. He denies any recreational drug use and we did a UDS in office and updated his pain mgt contract. PDMP reviewed and last Tramadol r efill was May 2018.PMH: HEP-C, Seizures from previous head trauma but denies any recent seizures.Case reviewed with Dr Domingo and he is in agreement with addition of Tramadol for PRN use).Encounter Diagnosis: Chronic midline low back pain, unspecifi ed whether sciatica present, Muscle spasms of neck, Encounter for monitoring opioid maintenance therapy [facility] Office Visit On: 26-Apr-2020 14:49 Encounter Reason: Headache - The onset o f the headache has been acute and has been occurring in an intermittent pattern for 2 days. The course has been constant. The headache is characterized as moderate., End: 26-Apr-2020 15:48 Cough - The onset of the cough has been acute and has been occurring in an intermittent pattern for 2 days. The course has been increasing. The cough is characterized as dry.Encounter Diagnosis: Suspected COVID-19 virus infection, Rhinosinusitis [facility] Annotation/Addendum On: 26-Mar-2020 14:40 Encounter Diagnosis: Cough, persistent End: 26-Mar-2020 14:49 [facility] Office Visit On: 23-Mar-2020 9:12 Encounter Reason: Covid exposure - Pt is here today with Covid Symptoms. Pt has been coughing, running fever, chills, body aches, congested, Headaches, for the past 3-4 days. He feels better but he still has the symptoms. Pt has no other complaints. End: 23-Mar-2020 18:49 , Flu like symptoms - The onset of the f nabil like symptoms has been sudden (pt has onset of fever, body aches, with cough and chills since Sat and was started on Generic Tamiflu and Robitussin DM for cough and expectorant. He says he is feeling b amanda and the cough and chest congestion has decreased. He has not had a fever for the past two days. He says his girlfriend has similar sx's.) and they have been occurring in a persistent pattern for 4 days. The course has been decreasing. The flu like symptoms are described as moderate.Encounter Diagnosis: Suspected COVID-19 virus infection, Flu-like symptoms [facility] Annotation/Addendum On: 05-Mar-2020 10:42 Encounter Diagnosis: Muscle spasms of neck End: 10:44 [facility] Office Visit On: 02-Mar-2020 15:19 Encounter Reason: Neck pain - The neck p ain has been occurring in a persistent pattern for 2 years. The course has been recurrent. The neck pain is described as severe. Note for "Neck pain": Pt is here today with complai End: 02-Mar-2020 16:55 nts of having neck pain and lower back p ain. Pt has had this pain for several years. the pain goes down into his arms and make them tingle. He has a sharp pain in his lower back. He use to take Tramadol and Tizanidine and it does help him wit h the pain. He can't get comfortable sitting or laying down at times. Pt is here today to get refills today. He is not allergic to Asa, Some, PCN, Adderall., Back Pain Lumbar, Chronic - This conditi on occurred in association with an established activity. The activity involved prolonged use that occurred at work. The activity began month(s) ago. Symptoms incl ude pain and stiffness. Symptoms are loc ated in the low back and in the left low back. The pain radiates to the left posterior thigh. The patient describes the pain as aching, burning and throbbing. Ons et was gradual. The episodes occur daily . The patient describes symptoms as moderate in severity. Symptoms are exacerbated by back motion, lifting, bending and straining. Symptoms are relieved by rest, ice and heat.Encounter Diagnosis: Muscle spasms of neck, History of seizur e disorder, History of hepatitis C, History of depression, Chronic midline low back pain, unspecified whether sciatica present [facility] Office Visit On: 06-Jun-2018 14:00 Encounter Reason: Shoulder pain - The sh oulder pain has been occurring for months. The course has been increasing. The shoulder pain is described as severe. Note for "Shoulder pain": Pt is here today with complaints of h End: 17-Jun-2018 19:03 aving shoulder and neck pain. He has bee n having this problem since his last visit. Pt states the pain is radiating down into his left arm and makes his arm tingle. He is getting dizzy at times. He is w orried and is concerned why he stays diz zy all the time now. He has a hx of neck and back pain. He has been having headaches and nose bleeds. 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 Note for " discuss consultation": Pt is here today for a follow up from the ER. Pt is complaining of hurting from his spine up to his neck and down his left a End: 19-Feb-2018 17:43 rm down his left leg to his feet. He sta bismark his toes are numb feeling. Pt we to the ER the other day because he was having these pains and was hurting in his chest. Pt states his pain is a 10 in the off ice today. He is allergic to Aspirin, So me, Pcn, and Adderall.Encounter Diagnosis: Suprascapular entrapment neuropathy of left side, History of hepatitis C, Increased ammonia level [facility] Nurse Visit On: 02-Nov-2017 8:42 Encounter Diagnosis: Acute asthmatic bronchitis End: 1 23-Oct-2017 8:49 [facility] Office Visit On: 01-Nov-2017 14:42 Encounter Reason: Follow Up - Date: (10/19 Pt is in for f/u r/t a recent ER visit for cough/SOB and wheeze and was started onMethylprednisilone / cough med and Albuterol nebs. He does not have a neb machine and has End: 01-Nov-2017 16:48 not used this. He still has a cough a nd SOB but denies fever. He says he feels bad and has lower back pain and spasm. He has hx of seizures in past due to head trauma and is out of his Phenytoin. Kamilah sun has Hep C and elevated liver enzymes a nd ammonia levels and we will continue his Neomycin and Lactulose). Current symptoms include other. Note for " discuss consultation": Pt is here today for a follo w up from an ER visit. Pt is complaining of being SOB and was put on Albuterol 0.83% 1/2 vial every 4 hours prn for shortness of breath. Pt doesn't have a machine to do the treatments with. He was als o put on some cough medication. Pt was p ut on cough medication as well but it has poured out and he doesn't have anymore. Pt is scheduled for November 14 @ 10:[address] Crowell in the [facility] rina office. Pt complains of coughing an d being so weak. Pt states the heat if making him feel off balance. His right ear is hurting him and he has some cotton stuffed in it today. He just wants to get to feeling better.Encounter Diagnosis: Acute asthmatic bronchitis, Spasm of mus gutierrez of lower back, Increased ammonia level, History of hepatitis C, History of seizure disorder [facility] Office Visit On: 08-Oct-2017 8:45 Encounter Reason: Follow Up - Date: (09-19 Pt is RTO for re-evaluation for his abdominal pain and evaluation of Hep -C for which he says he has had no treatment or evaluation. His last Ammonia level was done at [facility] End: 08-Oct-2017 11:29 son according to the pt at his last visi t. We do not have that result. We will request records from his other care provider.He says he has sharp/knife-like pain localized in his mid upper abdomen and has vomited blood and brown coffee groun d appearing emesis at times.). Current symptoms include joint pains and other. Note for " discuss consultation": Pt is here today with complaints of LBP and Neck pain. He recently went to the ER and had some test ran. Patient has a report of his neck and back with him. Pt has never applied for indigent care because he was never could get anyone to speak to him a bout it. Pt is complaining of vomiting d ark blood for several months now. Pt is complains of abdominal pain. He will need refills today while he is here. He is allergic to Soma, ASA, PCN, and Adderall.Encounter Diagnosis: Abdominal pain, acute, generalized, Elev ated liver enzymes, History of hepatitis C, Hematemesis, presence of nausea not specified, Muscle spasms of neck [facility] Historical Summary On: 14-Aug-2017 9:34 [facility] End: 14-Aug-2017 9:36 Historical Summary On: 19-Jul-2017 15:54 [facility] End: 19-Jul-2017 15:58 Office Visit On: 19-Jul-2017 14:55 Encounter Reason: Abdominal pain - The o nset of the abdominal pain has been gradual (Pt has a long history of problems r/t past poor choices and has known history of Hepatits C but has not seen anyone for his medical pro End: 23-Jul-2017 15:56 blems due to what he says is because he has "no insurance and has little source of income. He is working to get his SSI disability and his planning intern is working toward this. He is "not able to work." He has been incarcerated for the past 4 years and sees his operational intelligence officer monthly for drug screens. He has some "mental health issues and sees Clover Graham for this and she has actually ordered some labs for him several times." A set of (three) la bs are brought to the office on this day of visit and demonstrate elevations in liver enzymes and ammonias. SEE copies of reports in chart documents.He is complai cesar of increasing abdominal pain and sw elling. He also says he has had several stools recently that looked, "like blood, dark red blood." He reports he has been on Lactulose for constipation and he got this from his "DAD."His other meds are prescribed by [facility]. These include; Celexa, Trazadone, Haldol, Buspar,Benztropine. He says he was on Depokote but this was discontinued recently.He says kamilah sun had a severe head injury in the past a nd it has affected his memory and at times he has difficulty remembering but this varies and sometimes it is OK.) and has been occurring for 1 week (Abdominal noe n has been increasing for the past week. ). The course has been increasing. The abdominal pain is described as a severe sharp pain (Feels like someone is tearing his insides out). The abdominal pain is d escribed as being located in the right l ower quadrant. The abdominal pain does not radiate. The symptoms are aggravated by lying down (laying on his right side) and coughing. The symptoms have no reliev ing factors. The symptoms have been asso ciated with bloody stools and constipation. Note for "Abdominal pain": Pt is here today with complaints of having abdominal pain which has increased the past week . His last 3 anomia levels have been 56, 81, 114. Pt is concerned because he is Hep C +. he is only urinating 1-2 times daily and he states his urine is strong. Pt is staying constipated and it has been 3 days since he had a BM. He takes La ctulose daily but it doesn't help him. When he does have a bowel movement it's bloody stools that is dark red in color. Pt pain level is a 10 today in his abdominal area. Pt has no other complaints today. Encounter Diagnosis: Abdominal pain, acu te, Abdominal pain, RUQ, History of hepatitis C, Elevated liver enzymes, Abnormal AST and ALT, Increased ammonia level [facility], Vincenzo Velarde; a guarantor
[2022-04-18] MEDS ORDERED: PERCOCET TAB 5/325 MG PO PRN (09:17)
== END 2022-04-18 11:05 | disposition home or self-care (01) ==
LOC: ER 09:45 → MED/SURG 09:45
PROVIDERS: ADMIT Surgery; ATTEND Surgery
DX: E66.01 Morbid (severe) obesity due to excess calories; K42.0 Umbilical hernia with obstruction, without gangrene; F20.89 Other schizophrenia; K29.00 Acute gastritis without bleeding; F41.8 Other specified anxiety disorders; R10.84 Generalized abdominal pain; R13.11 Dysphagia, oral phase; K92.1 Melena

== ENCOUNTER 2022-05-01 23:27 | Observation (INO) ==
--- NOTE | 2022-05-02 00:12 | DR.ABDMALE ---
HPI Time seen Time Seen by Provider: 05/02/22 00:12 PCP Primary Care Physician: SYLVIE BAILEY Complaint Chief Complaint:: PT IN ED VIA WHEELCHAIR WITH C/O HERNIA INCISION LEAKING SINCE SUNDAY. PAIN IS BAD BUT OUT OF HIS PERCOCET. COVID-19 Coronavirus risk:travel/contact w/high risk person: No Has patient experienced Coronavirus symptoms: No Source History provided by:: PATIENT Mode of arrival Mode of Arrival: Wheelchair Timing Onset of Chief Complaint: 04/29/22 PMH PMH Past Medical History: Yes Past Medical History: Depression, Schizophrenia and Seizures Past Medical History Comment: HEP C BIPOLAR Past Surgical History: Yes Surgical History: Neurosurgery and Other Past Surgical History Comment: HERNIA Family History History of Family Medical Conditions: Yes Family Medical History: Diabetes Mellitus, Cancer, CT, Coronary Artery Disease, Heart Failure, Sudden Cardiac and Hypertension Social History Does patient currently use any type of tobacco product: No Have you used tobacco products in the last 12 months: No Type of Tobacco Use: None Does any household member use tobacco: No Alcohol Use: None Do you use any recreational Drugs:: No Lives With: Significant Other Lives Where: Home Travel Risk Coronavirus risk:travel/contact w/high risk person: No Has patient experienced Coronavirus symptoms: No Infectious screening In the last 2 months have you had wt loss of >10#?: NO Have you had fever, night sweats or hemotysis?: No Have you traveled outside the country in the last 6 months?: No Isolation: Standard ROS Review of Systems Constitutional: No Symptoms Reported; negative Fever Eyes: No Symptoms Reported ENTM: No Symptoms Reported Respiratoy: No Symptoms Reported Cardiovascular: No Symptoms Reported Gastrointestinal/Abdominal: Abdominal Pain and Nausea Genitourinary: No Symptoms Reported; negative Dysuria Neurological: No Symptoms Reported Musculoskeletal: No Symptoms Reported; negative Muscle Pain Integumentary: Other (SURGICAL WOUND DRAINING.) Hematologic/Lymphatic: No Symptoms Reported; negative Easy Bruising Endocrine: No Symptoms Reported; negative Increased Thirst or Increased Urine Psychiatric: No Symptoms Reported All Other Systems: Reviewed and Negative PE Vital Signs Vital Signs: Temp Pulse Resp BP BP Pulse Ox O2 Del Method 05/02/22 01:33 18 05/02/22 01:03 18 05/01/22 23:29 98.1 F 94 H 20 134/81 97 Room Air 04/25/22 08:00 127/67 General Limitations: No Limitations General Appearance: Alert and In No Apparent Distress Head Head Exam: Normal Inspection and Atraumatic Eyes Eye exam: Normal Appearance; negative Scleral Icterus or Conjunctival Injection ENT ENT Exam: Normal Exam, Normal Oropharynx, Normal External Ear Exam and TM's Normal Bilaterally Neck Neck Exam: Normal Inspection and Trachea Midline; negative Tenderness Chest Chest Inspection: Normal Inspection and Symmetric Chest Wall Rise; negative Tenderness Respiratory Respiratory Exam: Normal Lung Sounds Bilat; negative Accessory Muscle Use, Chest Wall Tenderness or Respiratory Distress Respiratory Exam: Bilateral: Clear to Auscultation Cardiovascular Cardiovascular Exam: Regular Rate, Normal Rhythm and Normal Heart Sounds; negative Systolic Murmur or Diastolic Murmur Abdominal Exam Abdominal Exam: Normal Bowel Sounds, Distention and Tenderness ROR Labs Reviewed Result Diagrams: 05/02/22 05:21 05/02/22 05:20 Laboratory: 05/02/22 00:40 Blood Blood Culture - Preliminary 05/02/22 00:35 Blood Blood Culture - Preliminary 05/02/22 00:31 Abdomen Wound Gram Stain - Final 05/02/22 00:31 Abdomen Wound Culture - Preliminary WBC 11.8 X10^3/uL (3.6-10.0) H 05/02/22 00:40 RBC 4.34 X10^6/uL (4.7-6.0) L 05/02/22 00:40 Hgb 13.8 g/dL (13.5-18.0) 05/02/22 00:40 Hct 38.9 % (42.0-54.0) L 05/02/22 00:40 MCV 89.5 fL (80.0-100.0) 05/02/22 00:40 MCH 31.8 pg (27.0-34.0) 05/02/22 00:40 MCHC 35.5 g/dL (33.0-35.0) H 05/02/22 00:40 RDW 12.5 % (11.6-16.5) 05/02/22 00:40 Plt Count 328 X10^3/uL (150.0-450.0) 05/02/22 00:40 MPV 8.6 fL (7.4-11.0) 05/02/22 00:40 Neut % (Auto) 58.7 % (42.0-75.0) 05/02/22 00:40 Lymph % (Auto) 29.7 % (21.0-51.0) 05/02/22 00:40 Sully % (Auto) 6.0 % (0.0-13.0) 05/02/22 00:40 Eos % (Auto) 4.9 % (0.9-2.9) H 05/02/22 00:40 Baso % (Auto) 0.7 % (0.2-1.0) 05/02/22 00:40 Neut # (Auto) 7.0 x10^3/uL (2.2-4.8) H 05/02/22 00:40 Lymph # (Auto) 3.5 X10^3/uL (1.3-2.9) H 05/02/22 00:40 Sully # (Auto) 0.7 x10^3/uL (0.3-0.8) 05/02/22 00:40 Eos # (Auto) 0.6 x10^3/uL (0.0-0.2) H 05/02/22 00:40 Baso # (Auto) 0.1 X10^3/uL (0.0-0.1) 05/02/22 00:40 Absolute Nucleated RBC 0.0 /100WBC 05/02/22 00:40 Sodium 142 mmol/L (136-145) 05/02/22 00:40 Corrected Sodium TNP 05/02/22 00:40 Potassium 3.9 mmol/L (3.5-5.1) 05/02/22 00:40 Chloride 105 mmol/L (98-107) 05/02/22 00:40 Carbon Dioxide 30.2 mmol/L (21-32) 05/02/22 00:40 BUN 13 mg/dL (7-18) 05/02/22 00:40 Creatinine 0.88 mg/dL (0.70-1.30) 05/02/22 00:40 Est GFR (MDRD) Af Amer > 60 (>60) 05/02/22 00:40 Est GFR (MDRD) Non-Af > 60 (>60) 05/02/22 00:40 Glucose 101 mg/dL (65-99) H 05/02/22 00:40 Calcium 9.0 mg/dL (8.5-10.1) 05/02/22 00:40 Corrected Calcium TNP 05/02/22 00:40 Total Bilirubin 0.20 mg/dL (0.2-1.0) 05/02/22 00:40 AST 15 Units/L (15-37) 05/02/22 00:40 ALT 27 Units/L (12-78) 05/02/22 00:40 Alkaline Phosphatase 96 Units/L (46-116) 05/02/22 00:40 Total Protein 7.3 g/dL (6.4-8.2) 05/02/22 00:40 Albumin 3.7 g/dL (3.4-5.0) 05/02/22 00:40 Globulin 3.6 g/dL (2.5-4.5) 05/02/22 00:40 Albumin/Globulin Ratio 1.0 Ratio (1.1-2.1) L 05/02/22 00:40 Opioid Opioid Risk Tool Age (Desmond box if 16-45): No History of Preadolescent Sexual Abuse: No Total: 0 Total Score Risk Category: Low Risk Copyright: Lawrence VALENTINO predicting aberrant behaviors Discharge Plan Diagnosis Discharge Problem: Abdominal pain, Abdominal wall abscess, Peritonitis Discharge Plan Patient Disposition: ADMITTED INPATIENT Condition: Stable Orders to Discharge Patient Discharge Orders: Discharge (Routine); Ordered 05/02/22 Ordered By: ZULAY CUNHA
[2022-05-02] MEDS ORDERED: ZOFRAN INJ 4 MG VIAL IM ONE (00:52)
[2022-05-02] MEDS ORDERED: DEMEROL INJ IM ONE (00:52)
[2022-05-02] MEDS ORDERED: ZOFRAN INJ 4 MG VIAL ONE ×2 (00:56→04:47)
[2022-05-02] MEDS ORDERED: DEMEROL INJ ONE (00:56)
[2022-05-02 01:02] LABS: BASOPHILS # (AUTO) 0.1 X10^3/uL (0.0-0.1); BASOPHILS % (AUTO) 0.7 % (0.2-1.0); EOSINOPHILS # (AUTO) 0.6 x10^3/uL (0.0-0.2); EOSINOPHILS % (AUTO) 4.9 % (0.9-2.9); HEMATOCRIT 38.9 % (42.0-54.0); HEMOGLOBIN 13.8 g/dL (13.5-18.0); LYMPHOCYTES # (AUTO) 3.5 X10^3/uL (1.3-2.9); LYMPHOCYTES % (AUTO) 29.7 % (21.0-51.0); MEAN CORPUSCULAR HEMOGLOBIN 31.8 pg (27.0-34.0); MEAN CORPUSCULAR HGB CONC 35.5 g/dL (33.0-35.0); MEAN CORPUSCULAR VOLUME 89.5 fL (80.0-100.0); MEAN PLATELET VOLUME 8.6 fL (7.4-11.0); MONOCYTES # (AUTO) 0.7 x10^3/uL (0.3-0.8); NEUTROPHILS % (AUTO) 58.7 % (42.0-75.0); RED BLOOD COUNT 4.34 X10^6/uL (4.7-6.0); RED CELL DISTRIBUTION WIDTH 12.5 % (11.6-16.5); WHITE BLOOD COUNT 11.8 X10^3/uL (3.6-10.0)
[2022-05-02 01:20] LABS: ALANINE AMINOTRANSFERASE 27 Units/L (12-78); ALBUMIN 3.7 g/dL (3.4-5.0); ALKALINE PHOSPHATASE 96 Units/L (46-116); ASPARTATE AMINO TRANSFERASE 15 Units/L (15-37); BLOOD UREA NITROGEN 13 mg/dL (7-18); CARBON DIOXIDE 30.2 mmol/L (21-32); CHLORIDE 105 mmol/L (98-107); CREATININE 0.88 mg/dL (0.70-1.30); SODIUM 142 mmol/L (136-145); TOTAL PROTEIN 7.3 g/dL (6.4-8.2); eGFR NON BLACK RACES > 60 (>60)
--- NOTE | 2022-05-02 01:56 | CT ---
STUDY: CT ABDOMEN AND PELVIS WITHOUT IV CONTRASTCOMPARISON: NoneTECHNIQUE: Axial images were obtained of the abdomen and pelvis without IV contrast. Sagittal and coronal reformatted images were provided. All images were reviewed in a variety of windows and levels.RADIATION REDUCTION TECHNIQUE: Automated exposure control, adjustment of the mA or kV according to patient size, or iterative reconstruction techniques were used.HISTORY: PT IN ED VIA WHEELCHAIR WITH C/O HERNIA INCISION LEAKING SINCE SUNDAY. PAIN IS BAD BUT OUT OF HIS PERCOCET.FINDINGS:Please note that lack of IV contrast does limit evaluation of the soft tissues and vascular detail.The visualized lower lung zones are clear. The heart size is within normal limits. There is no evidence of a pericardial effusion.The liver, spleen, pancreas, adrenal glands, and kidneys are grossly unremarkable. The gallbladder is grossly unremarkable.There is a fluid collection measuring 5 x 6 x 6 cm at the incision site in the subcutaneous fat overlying the abdominal wall with surgical skin staple with over this region that is worrisome for fluid collection. The inflammation is seen extending through the abdominal rectus muscle in into the peritoneal cavity.There is no evidence of stones or signs of obstructive uropathy.The stomach, small bowel, and colon are grossly unremarkable. A few scattered diverticula are seen without evidence of diverticulitis. There are no inflammatory changes in the right lower quadrant to suggest secondary signs of acute appendicitis. The appendix is normal.There is no evidence of retroperitoneal or mesenteric lymphadenopathy.The visualized bones demonstrate degenerative changes. There are no concerning lytic or blastic lesions identified.IMPRESSION:There is a fluid collection measuring 5 x 6 x 6 cm at the incision site in the subcutaneous fat overlying the abdominal wall with surgical skin staple with over this region that is worrisome for fluid collection. The inflammation is seen extending through the abdominal rectus muscle in into the peritoneal cavity.Electronically signed by: Nickolas Barnett (May 02, 2022 01:54:53)
[2022-05-02] MEDS ORDERED: NS 1,000 ML IV 1,000 ML ONE (04:20)
[2022-05-02] MEDS ORDERED: CLEOCIN 600 MG IV PREMIX 600 MG/50 ML BAG IV ONE (04:21)
[2022-05-02] MEDS ORDERED: ZOFRAN INJ 4 MG VIAL IVP PRN (04:21)
[2022-05-02] MEDS: CLEOCIN 600 MG IV PREMIX 600 MG/50 ML BAG IV SCH ×3 (04:26→13:56)
[2022-05-02] MEDS: NS 1,000 ML IV 1,000 ML IV SCH ×2 (04:26→14:04)
[2022-05-02] MEDS: DILAUDID INJ ONE ×2 (05:03→05:05)
[2022-05-02] MEDS: DILAUDID INJ IVP PRN ×3 (05:04→14:03)
[2022-05-02 05:32] VITALS: BMI 33.8
[2022-05-02 05:36] LABS: BASOPHILS # (AUTO) 0.1 X10^3/uL (0.0-0.1); BASOPHILS % (AUTO) 1.2 % (0.2-1.0); EOSINOPHILS # (AUTO) 0.4 x10^3/uL (0.0-0.2); EOSINOPHILS % (AUTO) 4.4 % (0.9-2.9); HEMATOCRIT 37.3 % (42.0-54.0); HEMOGLOBIN 13.1 g/dL (13.5-18.0); LYMPHOCYTES # (AUTO) 3.5 X10^3/uL (1.3-2.9); LYMPHOCYTES % (AUTO) 34.3 % (21.0-51.0); MEAN CORPUSCULAR HEMOGLOBIN 31.5 pg (27.0-34.0); MEAN PLATELET VOLUME 8.6 fL (7.4-11.0); MONOCYTES # (AUTO) 0.6 x10^3/uL (0.3-0.8); MONOCYTES % (AUTO) 5.7 % (0.0-13.0); NEUTROPHILS # (AUTO) 5.5 x10^3/uL (2.2-4.8); NEUTROPHILS % (AUTO) 54.4 % (42.0-75.0); RED BLOOD COUNT 4.14 X10^6/uL (4.7-6.0); RED CELL DISTRIBUTION WIDTH 12.6 % (11.6-16.5); WHITE BLOOD COUNT 10.1 X10^3/uL (3.6-10.0)
[2022-05-02 05:47] LABS: ALANINE AMINOTRANSFERASE 23 Units/L (12-78); ALBUMIN 3.4 g/dL (3.4-5.0); ALKALINE PHOSPHATASE 99 Units/L (46-116); ASPARTATE AMINO TRANSFERASE 11 Units/L (15-37); BLOOD UREA NITROGEN 14 mg/dL (7-18); CALCIUM 8.6 mg/dL (8.5-10.1); CARBON DIOXIDE 28.3 mmol/L (21-32); CHLORIDE 105 mmol/L (98-107); COR NA(FOR HYPERGLY) 140 mmol/L (136-145); CREATININE 0.84 mg/dL (0.70-1.30); SODIUM 140 mmol/L (136-145); TOTAL PROTEIN 6.7 g/dL (6.4-8.2); eGFR NON BLACK RACES > 60 (>60)
[2022-05-02 06:36] LABS: BILIRUBIN,URINE NEGATIVE (NEGATIVE); BLOOD/HEMOGLOBIN,URINE NEGATIVE (NEGATIVE); GLUCOSE, URINE NEGATIVE (NEGATIVE); KETONES,URINE NEGATIVE (NEGATIVE); LEUKOCYTE ESTERASE ,URINE 2+ (NEGATIVE); NITRITES,URINE NEGATIVE (NEGATIVE); PROTEIN,URINE NEGATIVE (NEGATIVE); UROBILINOGEN,URINE NORMAL (NORMAL)
[2022-05-02 06:39] LABS: APPEARANCE,URINE SLIGHTLY HAZY (CLEAR); COLOR,URINE YELLOW (YELLOW)
[2022-05-02 06:49] LABS: BACTERIA,URINE NEGATIVE /HPF (NEGATIVE); RBC,URINE 0-2 /HPF (0-3); SQUAMOUS EPITHELIAL CELL,UR RARE /HPF (NEGATIVE)
[2022-05-02] MEDS ORDERED: INVanz INJ 1 GRAM VIAL 1 G in NS 100 ML IV 100 ML IV SCH (08:00)
[2022-05-02] MEDS ORDERED: XYLOCAINE 1 % (PLAIN) ONE (16:13)
[2022-05-02 16:49] VITALS: BP 119/78
[2022-05-02] MEDS ORDERED: COLACE CAP 100 MG PO SCH (21:00)
== END 2022-05-02 17:07 | disposition home or self-care (01) ==
LOC: ER 23:28 → INTOOBSV 05-02 04:00 → MED/SURG 05-02 04:00
PROVIDERS: ADMIT Surgery; ATTEND Surgery